=== PATIENT | female | born 1945 | race Caucasian/White ===

== ENCOUNTER 2016-11-06 12:30 | Inpatient (IN) | payer MEDICARE, MEDICAID ==
[~2016-11-06] VITALS: Ht 170.2 cm; Wt 123.3 kg
--- NOTE | ~2016-11-06 | CON ---
PATIENT'S NAME: DESIRAE ALEXANDER [facility] AGE: 70 Y [address] ROOM: G6215 [place], [place] [address] LOCATION: GICU ADMIT DATE: 11/06/2016 Consultation DISCHARGE DATE: 11/20/2016 FAMILY PHYSICIAN: Oksana Tristan APRN ATTENDING PHYSICIAN: Jefferson Dobbs DATE OF CONSULTATION: 11/17/2016 REFERRING PHYSICIAN: LEON CASH PALLIATIVE MEDICINE CONSULTATION LOCATION: ICU Room 6215. REFERRING PROVIDER: Carissa Jean-Baptiste APRN CHIEF COMPLAINT: Palliative Care referral for goals of care conversation. HISTORY OF PRESENT ILLNESS: The patient is a 70-year-old female, who has been having recurrent falls at home. Apparently, her last fall, the patient had fallen and was unable to get up and spent the night on the floor. She was taken to the [facility] where she was found to have creatinine greater than 5.0. Thus, she was transferred to [facility] for higher level of care. Initially, she was admitted to the progressive care unit where she began to have change in level of consciousness and increased O2 demand and required intubation on November 07. The patient was also noted to have hypercalcemia. Workup of this was suspicious for multiple myeloma. A bone marrow biopsy was completed. 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 The patient was started on chemotherapy for this. During her course in the intensive care unit, her mentation did not improve. An MRI was completed which showed diffuse vasogenic edema suggesting secondary to hypertensive encephalopathy. The patient did also require hemodialysis while in the ICU. At the time of my consult, the patient's mentation has yet to improve and given her multiple comorbidities prior to this admission with the addition of plasma cell leukemia, Palliative Care has been brought on board to assist family with goals of care conversation. 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 They report that she has been struggling with some right knee pain which has resulted in multiple falls. The patient also has a history of diabetes mellitus, type 2; hypertension; osteoarthritis; and recurrent falls. PATIENT'S NAME: DESIRAE ALEXANDER [facility] AGE: 70 Y [address] ROOM: [place] [address] LOCATION: [facility] ADMIT DATE: 11/06/2016 Consultation DISCHARGE DATE: 11/20/2016 FAMILY PHYSICIAN: Oksana Tristan APRN ATTENDING PHYSICIAN: Jefferson Dobbs PAST SURGICAL HISTORY: Previous Operations: 1. Tonsillectomy. 2. Cholecystectomy. 3. Appendectomy. 4. Hysterectomy. 5. Surgical repair of a pelvic fracture. PAST MEDICAL HISTORY: 1. Type 2 diabetes mellitus. 2. Hypertension. 3. Morbid obesity. 4. Osteoarthritis. 5. Chronic kidney disease. MEDICATIONS: Please see current MAR. ALLERGIES: TO LATEX. SOCIAL HISTORY: The patient is . She has a history of smoking for approximately 10 years, quit in 1976. No alcohol use. She has a daughter who lives in [place] and a son, who had . FAMILY HISTORY: She had a son who of aplastic anemia at the age of 24. Her mother of breast cancer and her sister also had breast cancer. REVIEW OF SYSTEMS: As per HPI. Otherwise unobtainable as the patient is intubated and unresponsive. PHYSICAL EXAMINATION: VITAL SIGNS: Blood pressure 112/50, heart rate 71, temperature 97.7, respirations 24, and O2 saturations 96% on 40% FiO2 on the ventilator. GENERAL: Reveals unsedated, elderly obese white female, who is lying in intensive care unit, does not appear to be any acute distress. She is unresponsive. HEENT: Normocephalic, atraumatic. Eyes are equal and reactive to light. Sclerae are not icteric. Conjunctivae are pink. Tongue and mucous membranes are moist. Dentition is poor. CARDIOVASCULAR: Heart tones are regular rate and rhythm. I am not able to note a murmur. PATIENT'S NAME: DESIRAE ALEXANDER [facility] AGE: 70 Y [address] ROOM: [address] [address] LOCATION: [facility] ADMIT DATE: 11/06/2016 Consultation DISCHARGE DATE: 11/20/2016 FAMILY PHYSICIAN: Oksana Tristan APRN ATTENDING PHYSICIAN: Jefferson Dobbs RESPIRATORY: Respirations are nonlabored and regular on the ventilator. Lung sounds are slightly coarse bilaterally. GASTROINTESTINAL: Obese, soft, and nondistended. Bowel sounds are present. GENITOURINARY: Young catheter is intact with adequate amount of yellow urine. MUSCULOSKELETAL: No significant joint deformities. Peripheral pulses are 1+ bilaterally. There is no clubbing or cyanosis. She does have slight generalized edema. SKIN: Warm and dry. No unusual lesions or rashes. NEUROLOGIC: The patient shakes her head back and forth, but is spontaneous with this, does not follow any commands. She does withdraw all 4 extremities to pain. She does not open eyes to command. Does spontaneously open eyes, but does not track. IMPRESSION: 1. Respiratory failure. Continues on the ventilator. 2. Altered mental status. We will continue to monitor. 3. Generalized debility. 4. Code status. The patient is a DNR. She does have power of assistant district attorney on the chart and her power of assistant district attorney is her daughter, Leslie. PLAN: I did speak with the patient's daughter, Leslie on the phone, introduced the role of Palliative Care for support and goals of care in the intensive care unit. Provided education to Leslie on the patient's current condition. Her daughter does seem to understand her multiple comorbidities, but remains quite hopeful that she will recover. Answered multiple appropriate questions for the daughter. She does become tearful at times during our conversation, but does report that she has good support from her family at home. Given the amount of time that the patient has been on the ventilator, did discuss with Leslie that we would be needing to have a family meeting in the next couple of days to update her and discussed the plan of care moving forward. At this point, she plans to visit tomorrow, and I will assist with setting up a family meeting with the involved physicians to discuss plan of care. Family denied any spiritual needs for having good support. At this point, we will continue with current plan of care and hold a family meeting in the next day or 2. Total time of visit was 35 minutes, greater than 50% of this time was spent on the phone providing education and counseling. Thank you for allowing me to assist this patient and family. CHARLES REYES NP FOR IGOR PÉREZ MD PATIENT'S NAME: DESIRAE ALEXANDER [facility] AGE: 70 Y [address] ROOM: [place] [address] LOCATION: [facility] ADMIT DATE: 11/06/2016 Consultation DISCHARGE DATE: 11/20/2016 FAMILY PHYSICIAN: Oksana Tristan APRN ATTENDING PHYSICIAN: Jefferson Dobbs/sherinl /[id number] CC: Lewis Vazquez MD d: 11/23/16 1517 t: 11/24/16 1340, CONSULTATION REPORT
--- NOTE | ~2016-11-06 | CON ---
PATIENT'S NAME: DESIRAE ALEXANDER [facility] AGE: 70 Y [address] ROOM: G[address] [place], [place] [address] LOCATION: GICU ADMIT DATE: 11/06/2016 Consultation DISCHARGE DATE: FAMILY PHYSICIAN: Oksana Tristan APRN ATTENDING PHYSICIAN: SOMMER DOBBS DATE OF CONSULTATION: 11/08/2016 REFERRING PHYSICIAN: LEON CASH PULMONARY CRITICAL CARE MEDICINE CONSULT NOTE REQUESTING PHYSICIAN: Dr. Dobbs. REASON FOR CONSULTATION: Evaluation and management of a patient with acute respiratory failure, requiring mechanical ventilation. CHIEF COMPLAINT: Acute respiratory failure with worsening oxygenation. HISTORY OF PRESENT ILLNESS: This is a 70-year-old female with history of morbid obesity, hypertension, diabetes mellitus, and other comorbidities, who was admitted on November 06, 2016, after having recurring falls at home. The initial workup showed that the patient was in acute kidney injury with creatinine greater than 5. She has a history of chronic kidney disease with a creatinine of around 1.3 to 1.4. The patient was admitted for further workup of her acute kidney injury. Blood work also revealed significant hypercalcemia with calcium levels above 13. Yesterday, it was noted that the patient became more obtunded and also started requiring high levels of oxygen. Because of her change in mental status, she was eventually intubated and started on mechanical ventilation in assist control mode with tidal volume of 500, respiratory rate of 16, 100% FiO2, and a PEEP of 5. Earlier this morning, her FiO2 was 30%, but subsequently throughout the day, she started requiring up to 60% FiO2. An ABG done this morning showed pH of 7.47, pCO2 of 31, pO2 of 80 while on 30% FiO2. Because of her worsening oxygenation, I was asked by the hospitalist, Dr. Dobbs, to come and evaluate the patient. At the time of my evaluation, the patient was in clear ventilator dyssynchrony. She was not on any sedatives as the propofol had been stopped earlier today. I tried to increase the PEEP, and her oxygenation improved for a short while until she started fighting the ventilator's breaths. A chest CT was performed earlier today, and I personally reviewed the images that showed bilateral atelectasis with a focal infiltrate in the left lower lobe, which was concerning for aspiration pneumonitis. She also had evidence of a large left neck mass, extending into the thorax. PATIENT'S NAME: DESIRAE ALEXANDER [facility] AGE: 70 Y [address] ROOM: [place] [address] LOCATION: [facility] ADMIT DATE: 11/06/2016 Consultation DISCHARGE DATE: FAMILY PHYSICIAN: Oksana Tristan APRN ATTENDING PHYSICIAN: SOMMER DOBBS Because of her elevated blood pressure readings, the patient was started on nicardipine drip. She also received Lasix today with good urinary output afterwards; however, her last calcium level was still elevated at 13 earlier today. She was started on Zosyn for possible aspiration pneumonia. A V/Q scan done yesterday had low probability for pulmonary embolism. PAST MEDICAL HISTORY: 1. Hypertension. 2. Type 2 diabetes mellitus. 3. Chronic kidney disease. 4. Morbid obesity. 5. Peripheral neuropathy. SOCIAL HISTORY: According to the chart, the patient lives at home by herself and has a remote history of smoking. There is no history of alcohol or illicit drug abuse. FAMILY HISTORY: According to the chart, the patient's mother had heart disease and breast cancer. ALLERGIES: LATEX, BAND-AIDS. CURRENT MEDICATIONS: Reviewed, as per chart. Pertinent medications as per history of present illness. Notably, she is also on: 1. Calcitonin. 2. Pantoprazole. 3. Doxepin. 4. Propranolol. 5. Heparin subcu. 6. Amlodipine. 7. Clonidine. REVIEW OF SYSTEMS: Could not be performed because of the patient's clinical status. She was intubated and obtunded at the time of my evaluation. PHYSICAL EXAMINATION: VITAL SIGNS: Temperature was 98.6, heart rate was 83, respiratory rate was 21, blood pressure was 169/87, oxygen saturation 90% on 60% FiO2, and a PEEP of 5. GENERAL: She was intubated with a sedation analgesia score of 2. HEENT: Atraumatic head. Pupils were equal with brisk reaction to light. PATIENT'S NAME: DESIRAE ALEXANDER [facility] AGE: 70 Y [address] ROOM: [place] [address] LOCATION: GICU ADMIT DATE: 11/06/2016 Consultation DISCHARGE DATE: FAMILY PHYSICIAN: Oksana Tristan APRN ATTENDING PHYSICIAN: SOMMER DOBBS Anicteric sclerae. She had conjunctival pallor. NECK: Supple. No JVD. No lymphadenopathy. She had a hard mass at the base of the left sternocleidomastoid muscle, which was not mobile. CARDIOVASCULAR: Regular rhythm and rate. No murmur, rubs, or gallops. RESPIRATORY: She had decreased breath sounds with few crackles at both lung bases. Otherwise, clear to auscultation. ABDOMEN: Obese, soft, nontender. Bowel sounds were present. EXTREMITIES: She had minimal bilateral lower extremity edema. No cyanosis and no clubbing. LABORATORY DATA: Pertinent data as per history of present illness. Cardiac echo from yesterday showed normal ejection fraction, grade 1 diastolic dysfunction, dilated IVC with poor inspiratory collapse. However, her estimated RVSP was only 22 mmHg, which is within normal limits. She had a trivial tricuspid regurgitation. Renal panel from today reveals sodium of 142, potassium of 3.8, chloride of 110, total serum bicarbonate of 22, glucose of 113, BUN of 45, creatinine of 5.4, albumin of 2.3, phosphorus of 6.2. WBC was 4.7, hemoglobin was 9.2, hematocrit was 28.8, platelets were 124. Blood cultures had no growth to date. ASSESSMENT: 1. Acute respiratory failure. This is worsening, most likely due to atelectasis with possible aspiration pneumonia contributing to the initial injury as well. She will most likely benefit from higher peak end-expiratory pressure as long as there is no ventilator dyssynchrony. 2. Bilateral atelectasis. This is persistent despite intubation and is most likely due to less than ideal peak end-expiratory pressures. 3. Aspiration pneumonia. This is in the context of altered mental status. She is currently on Zosyn. 4. Altered mental status. This seems to be multifactorial due to hypercalcemia, acute kidney injury, hypoxia. 5. Hypercalcemia. This is of unclear etiology but can be secondary to malignancy versus parathyroid disease. 6. Left neck mass. This is with unknown etiology, although it can be malignancy versus parathyroid adenoma. 7. Acute kidney injury on chronic kidney disease with persistently elevated creatinine but still good urinary output. This can be due to hypercalcemia. PLAN: 1. We will continue mechanical ventilation as the patient requires high oxygen levels. I will restart her on propofol drip to prevent ventilator dyssynchrony, and we will increase the peak end-expiratory pressure PATIENT'S NAME: DESIRAE ALEXANDER [facility] AGE: 70 Y [address] ROOM: [id number] [place], [place] [address] LOCATION: [facility] ADMIT DATE: 11/06/2016 Consultation DISCHARGE DATE: FAMILY PHYSICIAN: Oksana Tristan APRN ATTENDING PHYSICIAN: SOMMER DOBBS afterwards as the patient had significant ventilator dyssynchrony with recruitment maneuver while she was more awake. 2. She will need an ENT consult for the left neck mass, and I personally notified the ENT services. 3. We will follow up the nephrology recommendations regarding management of hypercalcemia. 4. We will continue Zosyn and follow up culture results. 5. I will add proBNP to the morning labs. The current assessment and plan was discussed with the nursing staff, Dr. Dobbs, and the ENT services. I spent 45 minutes of critical care time managing acute respiratory failure, which is worsening in a patient with hypercalcemia and possible malignancy. I personally reviewed the data including radiology images and coordinated care among healthcare providers. I would like to thank you, Dr. Dobbs, for giving me the opportunity to participate in this patient's care. MD ЮЛИЯ ROSA/charla /[id number] d: 11/08/[id number] t: 11/09/16 0855, CONSULTATION REPORT
--- NOTE | ~2016-11-06 | NDGEN ---
PATIENT'S NAME: DESIRAE ALEXANDER [facility] AGE: 70 Y [address] ROOM: [address] [address] LOCATION: [facility] ADMIT DATE: 11/06/2016 Neurodiagnostics DISCHARGE DATE: FAMILY PHYSICIAN: Oksana Tristan APRN ATTENDING PHYSICIAN: SOMMER HERNANDEZ PROCEDURE: ELECTROENCEPHALOGRAM DATE OF PROCEDURE: 11/10/2016 DESCRIPTION: The patient had this EEG done on 11/10/2016 at 08:30 a.m. This is a 70-year-old patient who had worsening of her renal function and suddenly had alteration in her sensorium. This EEG was done because the patient is not waking up after being intubated. There is no known history of any seizure activity. This was a standard 20-lead EEG, which was done with photic stimulation. No hyperventilation could be done. At the time of this study, it was known that the patient was on propofol. The background rhythm showed odd rhythmic activity at every 2 to 3 second interval associated with high amplitudes in the background. It was mostly seen in the frontal leads, and possibly consistent with this just being blinking type artifacts as it is only seen in the frontal lead. However in the background, there is rather disruptive rhythmic activity that appears at every 1 to 2 second interval also seen in the left temporal lobe as well. This background rhythm showed complete disorganization throughout the whole study. The general background rhythm appeared to be overall slow at 4 hertz theta rhythm. This disjointed background rhythm may be consistent with epileptiform features though it is completely unclear if this may also be again due to background electrical activity from a ventilator or again due to blink artifact. The patient may be considered for antiseizure medication based upon the background rhythmicity. There was no clear evidence for seizures though the rhythmic activity may be a para phenomena associated with the patient's poor mental status. IMPRESSION: There is significant background activity that appears to be rhythmic mostly in the frontal leads, possibly consistent with an eye blinking artifact. The general background rhythm is slow at 4 hertz theta rhythm. Rhythmic activity suggested in other leads possibly consistent with ictal phenomenon. PATIENT'S NAME: DESIRAE ALEXANDER [facility] AGE: 70 Y [address] ROOM: [place] [address] LOCATION: [facility] ADMIT DATE: 11/06/2016 Neurodiagnostics DISCHARGE DATE: FAMILY PHYSICIAN: Oksana Tristan APRN ATTENDING PHYSICIAN: SOMMER HERNANDEZ MD JRM/charla /[id number] dtt: 12/02/16 0810 , YUNG PATEL dtd: 11/10/16 1751
--- NOTE | ~2016-11-06 | HP ---
PATIENT'S NAME: MASSIEL ALEXANDERRA Judy [facility] AGE: 70 Y [address] ROOM: [address] [place], [place] [address] [facility]ATION: [facility] ADMIT DATE: 11/06/2016 History & Physical DISCHARGE DATE: FAMILY PHYSICIAN: Oksana Tristan APRN ATTENDING PHYSICIAN: SOMMER HERNANDEZ DATE OF SERVICE: CHIEF COMPLAINT: NATHAN and fall. HISTORY OF PRESENT ILLNESS: This is a 70-year-old female with a history of type 2 diabetes and essential hypertension, who is presenting here from [place] for evaluation and workup of NATHAN. The patient reports that she fell at home three days ago and could not get up and had to stay on the floor overnight because she was not able to get herself up. She was subsequently found by a visitor who is also a coordinator on the floor and was subsequently brought to the Emergency Room in [place]. On evaluation, the patient was noted to have injuries to her right knee and contusions to her hip, but skeletal survey was negative for fractures. In any case, the patient was also noted to have significant NATHAN with creatinine greater than 5.0 and baseline is around 1.0. The patient was hydrated during her hospital stay there and given supportive care. However, her kidney function did not improve, although it was reported that she was making okay urine. The patient is subsequently transferred here for escalation of care. The patient during my evaluation today still complaints of right knee pain, however, denies any other complaints other than some aches and pains in her back from the fall. The patient also reports that her fall was mechanical and that her cane that she uses to walk gave on her and that is what led to her fall. She never really lost consciousness and attempted to get herself up several times without success. The patient otherwise denies any headache, dizziness, lightheadedness, chest pain, shortness of breath, cough, nausea, vomiting, diarrhea, or constipation. Denies any fever or chills as well. PAST MEDICAL HISTORY: 1. Type 2 diabetes. 2. Hypertension. 3. Morbid obesity. 4. Peripheral neuropathy. SOCIAL HISTORY: The patient lives at home by herself. Has a remote history of smoking. No alcohol or drug use. [facility] 70 Y [address] ROOM: [id number] [place] [address] LOCATION: [facility]U ADMIT DATE: 11/06/2016 History & Physical DISCHARGE DATE: FAMILY PHYSICIAN: Oksana Tristan APRN ATTENDING PHYSICIAN: SOMMER HERNANDEZ FAMILY HISTORY: The patient's mother had heart disease and of breast cancer. REVIEW OF SYSTEMS: All systems have been reviewed and were all negative except as described in the HPI. PHYSICAL EXAMINATION: VITAL SIGNS: Blood pressure 192/77, pulse 78, respiratory rate 16, and temperature 98.1. GENERAL: The patient is awake, alert, and oriented x3. Lethargic, but pleasant and in no significant distress. HEENT: The patient has dry mucosal membranes. No scleral icterus. Conjunctival pallor noted. SKIN: She has some mild bruising and swelling of her right knee and small amount of bruises on the upper, left side of her back. MUSCULOSKELETAL: She notes significant swelling of her right knee with pain with active and passive range of motion. HEART: S1 and S2. Regular rate and rhythm. CHEST: Clear to auscultation bilaterally. ABDOMEN: Soft, nontender, and nondistended. Positive bowel sounds. NEUROLOGIC: Grossly nonfocal. LABORATORY DATA: Significant laboratories: Creatinine this morning from [place] is 5.9. Baseline around 1.0. CPK is pending. ASSESSMENT AND PLAN: 1. Acute kidney injury. This is related to the patient's fall. No reports on the CPK level yet, but this is perhaps related to rhabdomyolysis or acute tubular necrosis from dehydration of a prerenal cause. We will continue hydrating the patient and monitor kidney function. Dr. Chau from Nephrology is to follow as well. 2. Fall. This appears to be mechanical in nature. She had a skeletal survey at [place] which did not show fractures of her knees or her hip joints. We will ask PT and OT to see and continue with pain management and supportive care. 3. Type 2 diabetes. The patient is on metformin at home setting of acute kidney injury. We will use sliding scale insulin during hospitalization and monitor. 4. Hypertensive urgency. Blood pressure is 192/77. We will use clonidine as needed as well as start her on amlodipine 5 mg daily and monitor closely. The patient is on lisinopril and hydrochlorothiazide at home, but we will hold this in the setting of acute kidney injury. 5. Morbid obesity due to excess calories. The patient will need lifestyle PATIENT'S NAME: DESIRAE ALEXANDER [facility] AGE: 70 Y [address] ROOM: [address] [address] [facility] ADMIT DATE: 11/06/2016 History & Physical DISCHARGE DATE: FAMILY PHYSICIAN: Oksana Tristan APRN ATTENDING PHYSICIAN: SOMMER HERNANDEZ modifications and diet adjustments to address this. 6. Peripheral neuropathy. We will continue patient's home medications including Neurontin. 7. Deep venous thrombosis prophylaxis. We will use subcutaneous heparin. MD ANA MYERS/charla /[id number] D: T: [id number] HISTORY & PHYSICAL
--- NOTE | ~2016-11-06 | CON ---
PATIENT'S NAME: DESIRAE ALEXANDER [facility] AGE: 70 Y [address] ROOM: [place] [address] LOCATION: GICU ADMIT DATE: 11/06/2016 Consultation DISCHARGE DATE: FAMILY PHYSICIAN: Oksana Tristan APRN ATTENDING PHYSICIAN: SOMMER HERNANDEZ DATE OF CONSULTATION: 11/09/2016 REFERRING PHYSICIAN: LEON CASH CHIEF COMPLAINT/REASON FOR CONSULTATION: Left neck mass. HISTORY OF PRESENT ILLNESS: The patient is a 70-year-old female, admitted to [facility] on 11/06/2016, with acute renal insufficiency, status post fall approximately on 11/03/2016. She was taken to the [place] [facility] Room where the patient was noted to be in acute renal insufficiency, was given IV fluids. The patient failed to progress and was subsequently transferred to [facility] on 11/06/2016. The patient has a history of kcu-kyepmhh-xbufhnviv diabetes mellitus. The patient decompensated and required intubation. This patient had an elevated calcium of 10.7, PTH was 4.7. The patient subsequently underwent a CT scan of her thorax without contrast on 11/08/2016 at which time, she was noted to have a large left-sided neck mass with deviation of the trachea to the right. The patient required intubation on 11/08/2016. ENT consultation was obtained for left-sided neck mass. Additional past history is not obtainable secondary to intubation. PAST MEDICAL HISTORY: Please see admission H and P. SOCIAL HISTORY: Please see admission H and P. FAMILY HISTORY: Please see admission H and P. REVIEW OF SYSTEMS: Please see admission H and P. PHYSICAL EXAMINATION: GENERAL: She is obese 70-year-old female, currently intubated and nonresponsive. HEENT: Eyes; EOMI. Pupils equal, round, and reactive. Nose; nasal mucosa is not edematous or erythematous. No rhinorrhea. Oropharynx and oral cavity; the patient is intubated with an ET as well as OG tube in place. Dentition is in PATIENT'S NAME: DESIRAE ALEXANDER [facility] AGE: 70 Y [address] ROOM: [place] [address] LOCATION: GI ADMIT DATE: 11/06/2016 Consultation DISCHARGE DATE: FAMILY PHYSICIAN: Oksana Tristan APRN ATTENDING PHYSICIAN: SOMMER HERNANDEZ good repair. NECK: The patient has a left-sided palpable thyroid mass with deviation of trachea to the right. There is no additional cervical lymphadenopathy. IMAGING STUDIES: A CT scan reviewed which reveals a large left thyroid mass with deviation of the trachea to the right. No additional cervical lymphadenopathy is appreciated. ASSESSMENT: 1. Left thyroid mass with tracheal deviation (5 x 6 cm). 2. Acute renal insufficiency. RECOMMENDATIONS: Pending further evaluation, the patient may require a percutaneous needle biopsy of a left-sided thyroid mass to rule out significant pathology (i.e., medullary CA). Consideration for surgical intervention when medically stable. ALIA PEREZ MD TVDavid/modl /[id number] d: 11/09/16 1316 t: 11/16/16 0714, CONSULTATION REPORT
--- NOTE | ~2016-11-06 | OR ---
PATIENT'S NAME: DESIRAE ALEXANDER [facility] AGE: 70 Y [address] ROOM: [place] [address] LOCATION: [facility] ADMIT DATE: 11/06/2016 OR/Procedure Report DISCHARGE DATE: FAMILY PHYSICIAN: Oksana Tristan APRN ATTENDING PHYSICIAN: SOMMER HERNANDEZ SURGEON: Kaylah Barnett MD DIGITAL PUBLISHING SPECIALIST: DATE OF PROCEDURE: 11/12/2016 PROCEDURE PERFORMED: Bone marrow biopsy and aspirate. DESCRIPTION OF PROCEDURE: The patient was placed on her right side, and her left posterior iliac crest was prepped and draped in a sterile fashion. 1% lidocaine was used for anesthetic. A bone marrow needle was placed into the bone x2 for aspirate, but a dry tap was obtained both times. Then, a different site on the bone was obtained, and a separate core was obtained for flow cytometry, cytogenetics, and FISH. The specimen was taken down to the lab for histologic evaluation and will be sent to reference lab for further evaluation. A Band-Aid was applied. There were no complications. KAYLAH BARNETT MD CML/modl /[id number] d: 11/12/16 1234 t: 12/07/16 1549, OPERATIVE SUMMARY
--- NOTE | ~2016-11-06 | CON ---
PATIENT'S NAME: MALLORY ALEXANDER [facility] AGE: 70 Y [address] ROOM: [address] [place], [place] [address] LOCATION: GICU ADMIT DATE: 11/06/2016 Consultation DISCHARGE DATE: FAMILY PHYSICIAN: Oksana Tristan APRN ATTENDING PHYSICIAN: SOMMER HERNANDEZ DATE OF CONSULTATION: 11/09/2016 REFERRING PHYSICIAN: LEON CASH Consult to Dr. Franco. HISTORY OF PRESENT ILLNESS: Mallory Alexander is a 70-year-old woman with IgG lambda multiple myeloma. The history of the present illness was obtained from Mrs. Alexander's daughter who was a good historian; Dr. Franco; review of the records forwarded by our colleagues in [facility]; and review of the extensive current [facility] chart. Apparently, Mrs. Alexander was in her normal state of health until 2-3 weeks prior to her hospitalization at [facility] on 11/06/2016. She lived in the [facility] in [place]. She had a private apartment. 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 She has used a walker since 2008. She has been unstable since 2008 because of her right knee. She has been disabled by osteoarthritis in the right knee, which has been aggravated by her class III obesity. 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 The patient can do some cooking and light work. She had no formal or informal exercise program and did not participate in any physical therapy or occupational therapy program. Two to three weeks prior to admission, the patient's right knee gave way and she fell out of her car. She was transported to the emergency room at the [facility]. She was evaluated and discharged. The patient continued to complain of a persistent, severe but chronic headache. On or about 11/01/2016, Mrs. Alexander's daughter called Mrs. Alexander. Mrs. Alexander did not answer. [facility]. Her daughter called the police department who presented to the patient's house and did not find her. The patient had already been found by the [facility] bushel girl who had called the rescue squad. The patient was transferred to the [place] Emergency Room where she was found to be in acute renal failure. Arrangements were made for transfer to PATIENT'S NAME: MALLORY ALEXANDER [facility] AGE: 70 Y [address] ROOM: [address] [place], [place] [address] LOCATION: GICU ADMIT DATE: 11/06/2016 Consultation DISCHARGE DATE: FAMILY PHYSICIAN: Oksana Tristan APRN ATTENDING PHYSICIAN: SOMMER HERNANDEZ the [facility]. It is important to note that on 05/29/2016, a general chemical profile revealed the EGFR was 36 mL/m and the globulin was elevated at 5.6 g/dL. The creatinine was 1.43 mg/dL. The albumin was 3 g/dL. Otherwise, the CMS was unremarkable. An earlier CBC is not available but Mrs. Alexander's daughter is unaware of any history of anemia. The patient was hospitalized at [facility] on 11/06/2016. The urinalysis revealed 30 mg/dL of protein. There were many bacteria. The white count was 4300 with 51 segs, 4 bands, 38 lymphs, 3 monos, 4 EOS as well as 2 nucleated red blood cells. The hemoglobin was 9.3 g/dL, the MCV 92, and the platelets 167,000. The CMS revealed the globulin was 7.5 g/dL, the calcium 13.2 mg/dL, the EGFR 7 mL/m, the BUN 52 mg/dL, and the creatinine 5.9 mg/dL. The liver function tests and other electrolytes were unremarkable. The albumin was decreased at 2.6 g/dL. The lactate was 1.2 mEq/L. The intact PTH was 4.7 pg/mL, which is low. The ferritin was elevated to 152.9 ng/mL, the iron was 45 ug/dL, the TIBC 26 ug/dL, and the percentage saturation 17%. The cardiac enzymes were unremarkable. The proBNP on 11/09/2016 was 7300 pg/mL. Uric acid upon admission was less than 0.2 mg/dL. The LDH was 168 IU/L. The glycosylated hemoglobin was slightly elevated at 5.8%. An IgG level is elevated at 3440 mg/dL, probably IgA level is low at 8 mg/dL, and the IgM level is low at 6 mg/dL. The beta-2 microglobulin is 14.1 mg/L. The lambda free light chains were 6 and 46 mg/dL, the kappa free light chains 1.34 mg/dL, and the kappa lambda ratio less than 0.01. The hepatitis B screen testings are pending. The hepatitis C virus testing is pending. 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 The serum protein electrophoresis revealed an albumin of 2.8 g/dL and a monoclonal protein of 1 g/dL. The urine immunofixation electrophoresis revealed monoclonal IgG lambda and monoclonal lambda light chains with 4082 mg of protein spilled in 24 hours. The bronchoalveolar lavage specimen revealed greater than 100,000 Staphylococcus aureus. The patient was placed on doxycycline for this organism. The plain film of the chest was unremarkable. 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 The kidneys were both 13 cm without hydronephrosis. The ventilation perfusion scan revealed a low probability of pulmonary emboli on 11/07/2016. A CT scan of the brain without contrast revealed no acute intracranial abnormality and severe pansinusitis. The CT scan of the thorax revealed a large left-sided substernal thyroid measuring 6 cm, displacing the trachea to the right. Bilateral central and posterior lobe consolidation with air bronchograms compatible with atelectasis was present. An ultrasound-guided biopsy of the left thyroid mass was performed on PATIENT'S NAME: MALLORY ALEXANDER [facility] AGE: 70 Y [address] ROOM: [place] [address] LOCATION: [facility] ADMIT DATE: 11/06/2016 Consultation DISCHARGE DATE: FAMILY PHYSICIAN: Oksana Tristan APRN ATTENDING PHYSICIAN: SOMMER HERNANDEZ 11/12/2016 and revealed thyroid tissue compatible with a benign follicular nodule. On 11/12/2016, a bone marrow aspiration & biopsy with flow cytometry, conventional cytogenetics and cytogenetics by FISH was performed. The marrow revealed plentiful plasma cells (voice report, Dr. Everton Edwards). The flow cytometry and formal report is pending. Mrs. Alexander has no history of anemia and proliferative disorder. ACTIVE MEDICAL PROBLEMS, CHRONIC AND DIAGNOSED: 1. Type 2 diabetes mellitus noted in 2008 when the patient presented for evaluation of fatigue. This has not been labile. It may have been associated with peripheral neuropathy. The patient has been checking her sugars at home. 2. Essential arterial hypertension noted in 2006. This has not been labile or associated with end-organ damage. This was picked up when she presented for evaluation of fatigue. 3. Obesity. The BMI is 44.6 kg/M2 on 11/06/2016. 4. Osteoarthritis involving the hips, right knee, back and associated with sciatica. 5. Presumed nonalcoholic fatty liver disease. 6. Essential tremor, manifested for 5-6 years. The patient had a grandmother who had this. 7. Tobacco use. The patient smoked 14 years but has abstained since 1976. 8. Benign follicular nodule noted on biopsy of the thyroid gland on 11/12/2016. 9. Acute kidney disease on top of chronic kidney disease. 10. "Severe pansinusitis" noted on CAT scan of the brain in 2016. 11. Protein calorie malnutrition. 12. Grade 1 diastolic dysfunction. 13. Hypovitaminosis D with a vitamin D level 9 ng/mL. 14. ?Bipolar disorder - ?generalized anxiety. 15. ?Irritable bowel syndrome - constipation, predominant. 16. ?Muscle tension headaches for 12 years. 17. Hyperlipidemia noted in 2008. 18. Allergic rhinitis as a child. ACUTE MEDICAL ILLNESSES (RESOLVED), PAST SURGERIES, INJURIES: 1. 1956 - tonsillectomy. 2. 1982 - tubal ligation. 3. : G2, P2, AB0. 4. 2005 - laparoscopic cholecystectomy. 5. 2009 - total abdominal hysterectomy for fibroid tumor. PATIENT'S NAME: MALLORY ALEXANDER [facility] AGE: 70 Y [address] ROOM: [id number] [place], [place] [address] LOCATION: [facility] ADMIT DATE: 11/06/2016 Consultation DISCHARGE DATE: FAMILY PHYSICIAN: Oksana Tristan APRN ATTENDING PHYSICIAN: SOMMER HERNANDEZ MEDICATIONS UPON HOSPITALIZATION: 1. Atorvastatin 10 mg p.o. q.p.m. 2. Bupropion 450 mg p.o. q.24h. 3. Diazepam 2 mg p.o. daily p.r.n. anxiety. 4. Doxepin 25 mg p.o. at bedtime. 5. Gabapentin 300 mg p.o. at bedtime. 6. Lisinopril/HCTZ 1 tab p.o. daily. 7. Loratadine 10 mg p.o. q.24h. 8. Metformin 500 mg p.o. b.i.d. 9. Naproxen 500 mg p.o. q.24h. 10. Propranolol 40 mg p.o. t.i.d. 11. Tramadol 50 mg p.o. b.i.d. ADVERSE REACTIONS TO MEDICATIONS, TRANSFUSIONS, ALLERGIES: 1. Band-Aids led to rash. 2. Therapeutic-M led to rash. 3. The patient's daughter is unaware of any blood transfusions that the patient had prior to her current hospitalization at [facility]. Remarkably, the patient has had no transfusions here. TOBACCO: The patient has abstained since 1976 and smoked an unknown amount for 10 years prior to that. ALCOHOL: None. CAFFEINE: Two to three cups of coffee per day. IMMUNIZATIONS: Positive flu. Positive Pneumovax. Positive tetanus in 2002. Positive varicella zoster virus. FAMILY HISTORY: 1. The patient had a son who of aplastic anemia at age 24. 2. The patient's mother had breast cancer at age 65. 3. The patient's sister developed breast cancer in her 80s. SOCIAL HISTORY: The patient was born in [place], [place] and graduated at the [employer]. The patient was in 2004 and retired in 2004 due to disability. She has a daughter in [place] and a son who . The patient is a member of the [employer]. As noted, she currently lived in [place] in a low-income apartment. PATIENT'S NAME: MALLORY ALEXANDER [facility] AGE: 70 Y [address] ROOM: [place] [address] LOCATION: [facility] ADMIT DATE: 11/06/2016 Consultation DISCHARGE DATE: FAMILY PHYSICIAN: Oksana Tristan APRN ATTENDING PHYSICIAN: SOMMER HERNANDEZ PHYSICAL EXAMINATION: VITAL SIGNS: Upon admission, pulse 72, blood pressure 175/80, respiratory rate 18, temperature 97.8, height 67 inches, weight 129.3 kg (285 pounds). BMI 44.6 kg/M2. GENERAL: Well-developed, obese, 63-year-old female who is intubated and also has an orogastric tube in place. HEENT: Unremarkable. LYMPH NODES: None palpable. NECK: There is a 10 cm vertical left neck mass. SKIN: Unremarkable. CHEST: Clear anteriorly. BREASTS: Pendulous. No obvious masses. CV: Decreased S1 and S2. No murmurs, bruits, or adventitious sounds. ABDOMEN: Healed horizontal scar at the pelvic brim. No masses, tenderness, or organomegaly. GENITAL AND RECTAL: Young catheter in place. EXTREMITIES: Compression devices present on the lower extremities. NEURO: The patient is unarousable, on the ventilator. IMPRESSION: 1. At least Revised-International Staging System stage II IgG lambda multiple myeloma complicated with hypercalcemia and acute renal failure, requiring hemodialysis and leading to plasmapheresis. It is rare to present with plasma cell leukemia, but she has. 2. The neck mass may be entirely benign. One biopsy compatible with benign follicular neoplasm does not rule out the possibility of neoplastic behavior. However, it is quite likely her immunoproliferative disorder would be responsible for most of her future morbidity and possible mortality and definitive surgical approach to the left neck mass will likely not be necessary. 3. Uncharacterized neurologic disorder associated with coma. It is not clear to what extent her immunoproliferative disorder is contributing. 4. Although, we do not have the cytogenetics by FISH to completely categorize what her risk category is, we know she has an aggressive myeloma and immediate treatment is warranted. RECOMMEND DIAGNOSTIC: Await cytogenetics by FISH. TREATMENT: 1. Initiate cyclophosphamide 300 mg/M2 p.o., days 1, 8, 15, and 22; bortezomib 1.5 mg/M2 subcutaneous, days 1, 8, 15, and 22; as well as dexamethasone 40 mg p.o. days 1, 8, 15, and 22 every 4 weeks. 2. Initiate valacyclovir, antiviral prophylaxis. 3. Pamidronate for hypercalcemia and bone disease if possible. PATIENT'S NAME: MALLORY ALEXANDER [facility] AGE: 70 Y [address] ROOM: [id number] [place], [place] [address] LOCATION: [facility] ADMIT DATE: 11/06/2016 Consultation DISCHARGE DATE: FAMILY PHYSICIAN: Oksana Tristan APRN ATTENDING PHYSICIAN: SOMMER HERNANDEZ 4. Continue hemodialysis and consider continued plasmapheresis by the patient's pack changer. If anybody is a candidate for plasmapheresis to reduce the light chain load to try to prevent long-term renal insufficiency this patient is. PATIENT EDUCATION: 1. Made the point to the patient's daughter this is a treatable disease. 2. Discussed the fact the treatment is with systemic neoplastic therapy. There is no role for radiation or surgery at this point. MD REI GONZALEZ/modl /[id number] CC: MD Oksana Patiño APRN Jason R Mallin, MD Abhisekh Sinha Ray, MD Barkot Gebremichael, MD d: 11/14/16 2341 t: 11/17/16 1435, CONSULTATION REPORT
--- NOTE | ~2016-11-06 | NDGEN ---
PATIENT'S NAME: DESIRAE ALEXANDER [facility] AGE: 70 Y [address] ROOM: [place] [address] LOCATION: [facility] ADMIT DATE: 11/06/2016 Neurodiagnostics DISCHARGE DATE: FAMILY PHYSICIAN: Oksana Tristan APRN ATTENDING PHYSICIAN: SOMMER HERNANDEZ PROCEDURE: ELECTROENCEPHALOGRAM DATE OF PROCEDURE: 11/10/2016 TIME: The patient had this EEG done on 11/10/2016, as a followup EEG. The time of this EEG is 08:30 a.m. DESCRIPTION: Ms. Alexander is a 70-year-old female patient who came in with acute onset of renal failure, had normal mental status, but suddenly developed rapid change in mental status one day. She had to be intubated. She is not waking up, but can respond to her environment, but remains very sleepy. This EEG was done to rule out any evidence of any background seizure activity. The general background rhythm was very similar to the prior EEG. It showed a burst pattern of about 3 to 4 seconds of high amplitude rhythmic activity followed by lower amplitude background rhythm of approximately 6 Hz. The general background rhythm in between burst pattern was in the theta range consistent with a slow background rhythm. This type of burst pattern symmetric rhythm followed by a diminished rhythmic pattern followed by many seconds of rhythmic activity does not appear to be seizures, but may be a burst suppression pattern from whole global injury. The pattern can be seen in anoxic persons who are in toxic metabolic states, infections such as encephalitis, electrolyte abnormalities, and organ failure. This unlikely represents some type of ictal of postictal pattern. IMPRESSION: An abnormal EEG due to background rhythm being slow intermixed with a burst rhythmic activity followed by more of a suppressed pattern. This sometimes can be seen as a postictal phenomena, but usually is more likely to be due to the whole brain injury from anoxia, infection, metabolic derangement. YUNG PATEL MD PATIENT'S NAME: DESIRAE ALEXANDER [facility] AGE: 70 Y [address] ROOM: [place] [address] LOCATION: [facility] ADMIT DATE: 11/06/2016 Neurodiagnostics DISCHARGE DATE: FAMILY PHYSICIAN: Oksana Tristan APRN ATTENDING PHYSICIAN: SOMMER HERNANDEZ/charla /[id number] dtt: 12/02/16 0820 , YUNG PATEL dtd: 11/16/16 1901
--- NOTE | ~2016-11-06 | ECHO ---
Transthoracic Echocardiography Report (TTE) Demographics Patient Name DESIRAE ALEXANDER Date of Study 11/07/2016 Patient Number [id number] Visit Number [id number] Date of 1945 Room Number G6215 Gender Female Number Age 70 year(s) Referring [facility] Coining Press Operator Basia Carrington RDCS, Physician Jefferson RVT Physician Interpreting Sia Adame MD Acrobatic Dancer Physician Supervising Ordering [facility] Jefferson FOOTE/MLP Physician Nurse Stress Chemical Waste Management Technician Conclusions Contractility Score Summary Normal Left Ventricular contractility was noted. Summary Technically difficult exam. The estimated left ventricular ejection fraction is 55-60%. The left ventricle is normal in size . Diastolic assessment reveals Grade I diastolic dysfunction. Dilated IVC with poor inspiratory collapse consistent with elevated RA pressure. The aortic root appears mildly dilated. The maximum diameter measures 4.1 cm. Procedure Type of Study TTE procedure:2D Echocardiogram. Procedure Date Date: 11/07/2016 Start: 12:36 PM Study Location: Inpatient Portable Technical Quality: Adequate visualization Indications:Hypertension. Additional Indications:Ventricular function Appropriate Use Criteria: 2 Patient Status: STAT HR: 69 bpm BP: 173/86 mmHg M-Mode/2D Measurements LV Diastolic Dimension: 4.04 cm LV Systolic Dimension: 2.26 cm LV Septum Diastolic: 0.86 cm LV PW Diastolic: 0.96 cm AO Root Dimension: 4.1 cm Cardiac Output: 6.79 l/min AV Cusp Separation: 2.4 cm RV Diastolic Dimension: 2.65 cm LA volume: 51 ml LVOT: 2.2 cm RV Base: 3.39 cm LVOT VTI: 25.9 cm RV Mid: 3.31 cm LV Stroke volume: 98.4 ml Doppler Measurements AV Peak Velocity: 1.23 m/s MV Peak E-Wave: 0.69 m/s AV Peak Gradient: 6.05 mmHg MV Peak A-Wave: 1.1 m/s AV Mean Gradient: 3 mmHg MV E/A Ratio: 0.63 LVOT Peak Velocity: 0.96 m/s MV P1/2t: 61 msec TR Gradient:6.97 mmHg PV Peak Velocity: 1.03 m/s Estimated RAP:15 mmHg PV Peak Gradient: 4.24 mmHg Estimated RVSP: 22 mmHg Estimated PASP: 21.97 mmHg E' Septal Velocity: 0.04 m/s A' Septal Velocity: 0.1 m/s E' Lateral Velocity: 0.05 m/s A' Lateral Velocity: 0.12 m/s Findings Left Ventricle The left ventricle is normal in size . Diastolic assessment reveals Grade I diastolic dysfunction. Right Ventricle Normal right ventricle structure and function. Left Atrium Normal left atrial size. Right Atrium Normal right atrial size. Dilated IVC with poor inspiratory collapse consistent with elevated RA pressure. Mitral Valve Normal mitral valve structure and function. Aortic Valve Normal aortic valve structure and function. Tricuspid Valve Trivial tricuspid regurgitation by color Doppler. Pulmonic Valve Normal pulmonic valve structure and function. Pericardial Effusion No evidence of pericardial effusion. Miscellaneous The aortic root appears mildly dilated. The maximum diameter measures 4.1 cm. Pleural Effusion No evidence of pleural effusion. Contractility Score LV regional wall motion:(0-Non visualized 1-Normal 2-Hypokinesis 3-Akinesis 4-Dyskinesis 5-Aneurysm) Signature dtt: Deep Stovall (cardio) dtd: 11/07/16 1236 Physician Self Edit
--- NOTE | ~2016-11-06 | DS ---
PATIENT'S NAME: DESIRAE ALEXANDER [facility] AGE: 70 Y [address] ROOM: [address] [place], [place] [address] LOCATION: GICU ADMIT DATE: 11/06/2016 Discharge Summary DISCHARGE DATE: 11/20/2016 FAMILY PHYSICIAN: Oksana Tristan APRN ATTENDING PHYSICIAN: Jefferson Dobbs ADMITTING DIAGNOSIS: Acute kidney injury. DISCHARGE DIAGNOSES: Plasma cell leukemia, acute kidney injury, acute encephalopathy, hypercalcemia, acute hypoxic respiratory failure, pancytopenia, health care-associated pneumonia, vasogenic edema of the brain, most likely secondary to hypertensive encephalopathy, possible seizure. PROCEDURES: Intubation with mechanical ventilation, dialysis, Vas-Cath placement, lumbar puncture. CONSULTATION: Palliative Care, Oncology, Nephrology, and Neurology. HISTORY OF PRESENT ILLNESS: This is a 70-year-old female with history of type 2 diabetes, essential hypertension who presented from [place] for evaluating and workup of NATHAN. The patient initially reports that she fell at home 3 days ago and could not get up and had to stay on the floor overnight because she was not able to get up herself. She was subsequently found by a visitor who was also coordinator on the floor and was brought to the emergency department in [place]. At the [facility], she was noted to have injuries on her right knees and contusion on her hip. The patient was noted to have a significant acute kidney injury with creatinine greater than 5 from a baseline of 1. The patient was hydrating during her hospital stay and given supportive care. However, kidney function did not improve, although it is reported that she was making some urine output. The patient was subsequently transferred here for further care. HOSPITAL COURSE: The patient was admitted to our hospital. Nephrology consult was made. The patient has hemodialysis line placement. Also, the patient was noted to have hypercalcemia workup. Off the hypercalcemia workup, the patient was suspected to have multiple myeloma and had bone marrow biopsy. Oncology was consulted. Bone marrow biopsy results shows plasma cell leukemia. The patient received Cybor-D x1 for plasma cell leukemia. The patient also was noted to have poor mentation and subsequently was found to be unresponsive, which required intubation and mechanical ventilation. MRI of the brain shows diffuse vasogenic edema suggesting secondary to hypertensive encephalopathy. During her stay, the patient was also noted to have elevated blood pressure. For hypercalcemia, the patient was seen by die trimmer and was placed on dialysis and received one dose of bisphosphonate. Calcium during stay was somewhat improved. The patient continued to have session of PATIENT'S NAME: DESIRAE ALEXANDER [facility] AGE: 70 Y [address] ROOM: [address] [place], [place] [address] LOCATION: [facility] ADMIT DATE: 11/06/2016 Discharge Summary DISCHARGE DATE: 11/20/2016 FAMILY PHYSICIAN: Oksana Tristan APRN ATTENDING PHYSICIAN: Jefferson Dobbs dialysis without improvement of creatinine. The patient's mentation continued to deteriorate. The patient had Urology consult for possible seizure-like activity. The LP was done, which was unremarkable. The patient continued to have poor mentation. GCS was 6 with grimacing and withdrawing to painful stimuli. Multiple discussions were made with family about continuing her care. Due to the aggressive nature of the disease, plasma cell leukemia, and the patient's continuing worsening of symptoms, family member after long section of discussion with Dr. Plaza from Oncology and [place], Dr. Zazueta, family requested the patient to withdraw aggressive care and keep the patient in comfort care. The patient's code status was changed to DNR with comfort care today this afternoon. The patient was extubated around 1543. Palliative care was involved. The patient at 1917 hours. Cause of date: Cardiopulmonary arrest secondary to comatose and multiple organ failure. CONDITION: The patient . DISPOSITION: Home. DISCHARGE MEDICATION: There are no discharge medication. FOLLOWUP: No followup, patient diseased. Greater than 30 minutes were spent on discharge planning including meeting with family member this afternoon about the patient's status. The patient has . Family member present when the patient . MD MAR LINARES/charla /[id number] d: 11/21/16 0656 t: 11/21/16 1749, DISCHARGE SUMMARY
--- NOTE | ~2016-11-06 | CON ---
PATIENT'S NAME: MALLORY ALEXANDER [facility] AGE: 70 Y [address] ROOM: [address] [place], [place] [address] LOCATION: GICU ADMIT DATE: 11/06/2016 Consultation DISCHARGE DATE: FAMILY PHYSICIAN: Oksana Tristan APRN ATTENDING PHYSICIAN: SOMMER DOBBS DATE OF CONSULTATION: 11/08/2016 REFERRING PHYSICIAN: LEON CASH The patient was seen on 11/08/2016 at 1:00 p.m. at the request of the hospitalist, Dr. Dobbs. HISTORY OF PRESENT ILLNESS: At the time of my seeing the patient, she was in the ICU, and was intubated after an emergency call on the floor when the patient suddenly became unresponsive. This 70-year-old female has multiple medical issues including stage 3 chronic kidney disease, hypertension. Her baseline creatinine was known to be in the range of 1.3 to 1.4; however, she presented with an acute renal injury with creatinine as high as 5.9. Her creatinine level was in the 4s currently when I am seeing her. Her BUN is particularly high, holding in the range of 40. The patient never had any known seizure activity and though she was not witnessed to have a seizure, it was a possibility that she may have had a seizure to explain her acute mental status change. The patient was transferred from the floor, hereafter, she was admitted for workup of as to why she has progressive acute kidney failure as well as worsening of a chronic tremor. Upon her admission to this hospital, she was alert and oriented. Able to give a full history. She was noted to have an increased tremor in her upper extremities. Her glucose was slightly elevated and discussions with her concerning her glucose management took place. She seemed to have been able to understand all questioning. She did not appear to be short of breath or complaining about pain and she did not receive any pain medications. The patient does live by herself in an apartment in [place] and as far as most of what we know, she is quite homebound, has a daughter who lives close by and she is involved in her care closely. When I saw the patient on my exam, she was in the ICU, intubated with an ET tube in place. On a sternal rub, the patient was wincing and withdrawing her upper extremities to pain but was not opening her eyes and had been off the propofol anesthetic sedation since the oncology nurse navigator of at least 7 hours. She appeared to be moving all of her limbs and able to at least be aware of her sensorium to withdrawal to pain. However, again did not open her eyes or follow commands. PAST MEDICAL HISTORY: She has an essential tremor, morbid obesity, chronic low grade kidney disease, however, with the presentation, she presented with acute on chronic renal failure. She has no history of needing renal dialysis. She also has a PATIENT'S NAME: MALLORY ALEXANDER [facility] AGE: 70 Y [address] ROOM: [place] [address] LOCATION: [facility] ADMIT DATE: 11/06/2016 Consultation DISCHARGE DATE: FAMILY PHYSICIAN: Oksana Tristan APRN ATTENDING PHYSICIAN: SOMMER DOBBS history of major depression, chronic sciatica. PAST SURGICAL HISTORY: Included a cholecystectomy in 2005, tubal ligation, hysterectomy in 2009 secondary to uterine fibroid. FAMILY HISTORY: Consistent with coronary artery disease in her father and in an aunt. There is some diabetes that is both in her aunt and her grandmother. SOCIAL HISTORY: The patient does live alone. However, she has a daughter who comes to her apartment. The patient lives in [place]. The daughter lives in [place]. She is . There is no history here of alcohol abuse. She is an ex-smoker. CURRENT MEDICATIONS: The patient is on: 1. Zosyn 3.375 mg IV twice a day. 2. Pantoprazole 40 mg IV daily. 3. Doxepin 25 mg p.o. at bedtime. 4. Propranolol 40 mg 3 times a day. 5. Heparin subcutaneously 5000 units 3 times a day. 6. Clonidine 0.1 mg q.6 hours p.r.n. hypertension as well as regular insulin with each meal and at bedtime subcutaneously. REVIEW OF SYSTEMS: Ms. Alexander is a 70-year-old female patient who presents with acute on chronic renal insufficiency. Her mental status was good here in the hospital on admission; however, she had acute mental status change of alteration in her sensorium, need to be intubated. The possibility of whether she had a neurologic insult such as a stroke or a new seizure was questioned. Diabetes, the patient has long-standing diabetes. She is on chronic insulin therapy. She does not know her fingerstick glucose management very well. She has obesity. Psychiatric history, history of depression. Renal history as mentioned, renal insufficiency but acute on chronic renal failure. No history of renal dialysis. Rest of a 10-point review of systems is within normal limits. PHYSICAL EXAMINATION: GENERAL: The patient is an obese female, intubated; however, she reacts to environmental stimuli such as a sternal rub. She grimaces in pain at attempts to bring her arms up towards the ET tube or to guard, due to pain. Otherwise, she remains what appears to be quite sedated, does not open her eyes. She does not follow commands. She squeezes my hand. She otherwise remains still. There is no noticed jerking of the limbs or noticeable tremor or seizure PATIENT'S NAME: MALLORY ALEXANDER [facility] AGE: 70 Y [address] ROOM: [place] [address] LOCATION: [facility] ADMIT DATE: 11/06/2016 Consultation DISCHARGE DATE: FAMILY PHYSICIAN: Oksana Tristan APRN ATTENDING PHYSICIAN: SOMMER DOBBS activity was seen. The patient is not on any sedative medications. NEUROLOGIC: Cranial nerves, grossly intact. Motor exam, normal tone of all 4 limbs. The patient does seem to move all 4 limbs in reaction to pain. Sensory exam and coordination cannot be tested well. LABORATORY DATA: Laboratory results do reveal an elevated calcium level, as high as 13.2 upon admission though it has recovered to 10.7 upon hydration alone. Creatinine is noticed to be at 5.9 with a BUN in the range of 40s to 50s. Liver functions including AST, ALT, and alkaline phosphatase are otherwise normal. She had a normal iron study, normal ferritin level, and CPK levels were all within normal limits, inconsistent with any recent seizure activity. A new PTH level was taken and it is low at 4.7. IMPRESSION: The etiology for the patient's mental status being poor at this time is really unknown. The acute change in mental status could have been associated with a possibility of a seizure though without any etiology other than a slightly high calcium which has improved with rehydration, seems to be a less likely etiology here. The low PTH level does not suggest a primary reason such as a hyperparathyroid adenoma and in fact the low PTH would suggest some reaction to some intrinsic high calcium in her system. There is no known tumor mass. There is no known bony mass that we are aware of. She does have some fullness in her left neck in the region of her thyroid which may be worked up but this may be unrelated. CPK levels being low do not suggest any recent generalized seizure. I have ordered an EEG nonetheless to rule out any possibility of odd epileptiform activity or any background seizure activity due to the patient's poor mental status currently. Nonetheless, the patient does react to revive mental stimuli such as pain and may just be quite sedated at this time. A CAT scan of the brain does not show any evidence of an intracranial mass or developing a stroke, thus the mental status change does not seem to be related to an intracranial process. Certainly, a sudden onset of mental status change would not be consistent with a brain infection as she was quite normal, did not have any meningismus signs, and does not have any active fever. We need to follow along with the Hospitalist Service on the Ms. Mallory Alexander's neurologic status. MD MEREDITH RODRIGUES/charla PATIENT'S NAME: MALLORY ALEXANDER [facility] AGE: 70 Y [address] ROOM: [place] [address] LOCATION: [facility] ADMIT DATE: 11/06/2016 Consultation DISCHARGE DATE: FAMILY PHYSICIAN: Oksana Tristan APRN ATTENDING PHYSICIAN: SOMMER DOBBS /[id number] d: 11/09/16 1715 t: 11/12/16 1324, CONSULTATION REPORT
--- NOTE | ~2016-11-06 | CON ---
PATIENT'S NAME: DESIRAE ALEXANDER [facility] AGE: 70 Y [address] ROOM: [address] [place] [address] LOCATION: GPCU ADMIT DATE: 11/06/2016 Consultation DISCHARGE DATE: FAMILY PHYSICIAN: Oksana Tristan APRN ATTENDING PHYSICIAN: SOMMER DOBBS DATE OF CONSULTATION: 11/06/2016 REFERRING PHYSICIAN: Sommer Dobbs MD REASON FOR CONSULTATION: NATHAN. HISTORY OF PRESENT ILLNESS: A 70-year-old female with a history of hypertension, diabetes, CKD stage 3 with baseline creatinine around 1.3-1.4, presented to [facility] after multiple episodes of fall more recently today. A CT head and x-rays was negative for any body injury; however, on routine serum chemistry, the patient was noted to have a creatinine of 5.9, from a prior baseline of 1.4 in July 2016. She has never seen a editor in the past and subsequently the patient got transferred to our hospital for further evaluation and management of her NATHAN. Nephrology consultation has been called for above-mentioned reason. During my evaluation, the patient is alert, oriented without any significant neurological involvement except chronic tremor, which is thought to be essential in the past. Routine labs here shows normocytic normochromic anemia with hemoglobin of 9.3, creatinine of 5.9, and BUN of 53, hypercalcemia of 13.2, altered A/G ratio of 0.3, total protein of 10.1, and albumin of 2.6. Urinalysis specific gravity was 1.015, pH of 7 with 1+ protein, 1+ blood, and many bacteria, but otherwise negative. The patient denied any significant chest pain, shortness of breath, or orthopnea. She has no urinary symptoms at this point as well. She has significant history of degenerative joint disease or arthritis on multiple joints in the body and her mobility is severely restricted. Since her demised about 8-10 years back, she is living alone in an apartment at [place]. Although, she does her activity of daily living independently, but she mentions that she walks very little during the whole day. She also says that she is compliant with her medication regimen, but could not specify the exact medication what she is taking. She does not know her fingerstick blood sugar level or the blood pressure, which she monitors everyday at home. Her daughter is closely involved in her care; however, she does not live with her and lives at [place]. Noted the patient also gave history of chronic constipation every time it lasts for a couple of days and she takes MiraLAX for that on and off. REVIEW OF SYSTEMS: GENERAL: No fever. No chills or rigor. HEENT: No sore throat. No sinus congestion. CVS: No chest pain. No exertional shortness of breath. No leg swelling. RESPIRATORY: No shortness of breath. No cough. No wheezing. GENITOURINARY: No pain with urination. No increased frequency. No nocturia. GASTROINTESTINAL: No abdominal pain. No abdominal distention. No nausea or vomiting. NEUROLOGIC: No weakness. No seizures. SKIN: No rash, but significant bruising all over the body especially over the legs, arms, and back. The patient has significant history of falls and no itching . ALLERGIES: No seasonal allergy. No hayfever. ENDOCRINE: No heat intolerance. No cold intolerance. PSYCHIATRIC: No significant sadness, but has major depressive disorder history in the past. No crying spells. No history of panic attack. PATIENT'S NAME: DESIRAE ALEXANDER [facility] AGE: 70 Y [address] ROOM: [place] [address] [facility] ADMIT DATE: 11/06/2016 Consultation DISCHARGE DATE: FAMILY PHYSICIAN: Oksana Tristan APRN ATTENDING PHYSICIAN: SOMMER DOBBS PAST MEDICAL HISTORY: 1. Hypertension. 2. Type 2 diabetes with long-term use of insulin. 3. Chronic sciatica. 4. Major depressive disorder. 5. Degenerative joint disease. 6. Morbid obesity. 7. Nonalcoholic fatty liver disease. 8. Essential tremor. PAST SURGICAL HISTORY: Cholecystectomy in 2005, tonsillectomy, tubal ligation, and hysterectomy in 2009, secondary to fibroid. FAMILY HISTORY: Prostate cancer in maternal grandfather, coronary artery disease in father, hypertension in father, cancer in maternal aunt, diabetes in maternal grandmother and maternal aunt, and breast cancer in mother. SOCIAL HISTORY: Lives alone after the demise of her spouse, , nonalcoholic, no IV drug use, and ex-smoker. LABORATORY EVALUATION: CBC: Hemoglobin 9.3, WBC 4.3, and platelet 167. Chemistry: Sodium 144, potassium 4.7, chloride 112, bicarbonate 21, BUN 52, creatinine 5.9, calcium 13.2, glucose 91, CPK 12.8, A1c. 5.8, total protein 10.1, albumin 2.6, A/G ratio 0.3. Urinalysis specific gravity 1.015, pH 7, 1+ protein, 1+ blood, many bacteria. Urine sodium 111, urine creatinine 52. PHYSICAL EXAMINATION: VITAL SIGNS: 190/70, pulse is 70, respiratory rate 16, and 98.1 degrees Fahrenheit. GENERAL: Not in apparent distress. HEAD: Moist mucous membranes. Bilateral PERRLA, EOMI. NECK: No JVD, thyromegaly or lymphadenopathy. CVS: S1, S2 positive, irregular rate and rhythm, soft systolic murmur. CHEST: Bilateral air entry equal. No wheeze or rales. ABDOMEN: Soft, nontender, nondistended. Bowel sounds present. EXTREMITIES: No cyanosis, clubbing, jaundice. No dependent edema. MUSCULOSKELETAL: No limitation of range of motion. SKIN: No pallor, cyanosis, icterus. No cyanosis, no jaundice; however, significant bruising in the back over lower extremity and in the upper abdomen. Livedo reticularis like skin rash in bilateral lower extremities. FOOD AND BEVERAGE SERVER: Alert and oriented x3, some tremor; however, no other gross focal neurological deficit. PATIENT'S NAME: DESIRAE ALEXANDER [facility] AGE: 70 Y [address] ROOM: [place] [address] LOCATION: GPCU ADMIT DATE: 11/06/2016 Consultation DISCHARGE DATE: FAMILY PHYSICIAN: Oksana Tristan APRN ATTENDING PHYSICIAN: SOMMER DOBBS ASSESSMENT AND PLAN: 1. Acute kidney injury on chronic kidney disease. Presumably baseline creatinine of 1.3-1.4. Probably due to underlying diabetic nephropathy versus hypertensive nephrosclerosis. Acute kidney injury currently presumably secondary to prerenal versus hemodynamic acute tubular necrosis in context of ACEI use as well as hypercalcemia. Plan will be to aggressively volume expand the patient, no significant history of heart failure; so, we will give at least a couple of liters of normal saline bolus followed by 200 mL/hr. We will closely monitor the renal function with daily renal panel. We will avoid nephrotoxins, avoid hemodynamic insults, and maintain MAP more than 65. The patient has been encouraged to consume a low-salt TSH diet. The patient has significant azotemia, but has no significant clinical or biochemical indication for renal replacement therapy yet; however, we will closely monitor for the need of renal replacement therapy/dialysis in the near future. 2. Hypercalcemia with normocytic normochromic anemia and altered A/G ratio and multiple bruising, suspect differentials is paraproteinemia versus hyperparathyroidism versus immobilization induced. We will aggressively volume resuscitate at this point. We will decide about calcitonin later. Check renal panel tomorrow morning. We will check PTH, 25-hydroxy vitamin D, 125 dihydroxy vitamin D, N-telopeptide, SPEP, UPEP, and free light chains to rule out paraproteinemia. We will also do iron panel and ferritin to rule out iron-deficiency anemia. 3. Normocytic normochromic anemia. Query iron deficiency versus paraproteinemia induced. We will do iron panel to rule out iron deficiency. The patient probably will need an Oncology followup once the workups are back. 4. Hypertension. Currently, blood pressure is above the acceptable range. We agree with the plan to manage with clonidine, hydralazine, or amlodipine at this point, avoid HALEY blocking agent or diuretic at this point, aggressively volume expand the patient. 5. Diabetes, which is well-controlled, A1c is 5.8, we will defer management up to the primary team. Thank you for allowing me to participate in this patient's care. We will closely monitor the patient's progress along with you. FLORENTINOEKH KYLEE CASH MD /modl /[id number] d: 11/07/16 0021 t: 11/11/16 1014, CONSULTATION REPORT
[2016-11-06] MEDS ORDERED: VALIUM2 MG PO (13:04)
[2016-11-06] MEDS ORDERED: WELLBUTRIN SR150 MG PO (13:05)
[2016-11-06] MEDS ORDERED: NAPROSYN500 MG PO (13:05)
[2016-11-06] MEDS ORDERED: NEURONTIN300 MG PO (13:06)
[2016-11-06] MEDS ORDERED: LISINOPRIL-HCT1 EACH PO (13:06)
[2016-11-06] MEDS ORDERED: LIPITOR10 MG PO (13:07)
[2016-11-06] MEDS ORDERED: CLARITIN10 MG PO (13:07)
[2016-11-06] MEDS ORDERED: INDERAL40 MG PO (13:08)
[2016-11-06] MEDS ORDERED: GLUCOPHAGE500 MG PO (13:08)
[2016-11-06] MEDS ORDERED: ULTRAM50 MG PO (13:08)
[2016-11-06] MEDS ORDERED: SINEQUAN25 MG PO (13:09)
--- NOTE | 2016-11-06 13:51 | NUR ---
Pt is 70 y/o female admit for acute renal failure/dehydration for hospitalist. Allergies to band aids and therapeutic-M. REd and yellow bracelet on. Hx migraines,hayfever,weak legs,htn,hypercholest,RLS,heartburn,leaking/dribbling, stress incontinence,IBS. Resides at home by herself. States she has had 3 falls in past 3 weeks. She fell at home on the and laid there until the next morning. Taken by ambulance to [facility] where she has been inpatient since Wednesday. Pt moves with difficulty and is 2 assist. Came via ambulance from [place].
[2016-11-06 17:05] LABS: HEMATOCRIT 29.8 % (33.0-46.0); HEMOGLOBIN 9.3 g/dL (10.0-15.0); MCH 28.9 pg (27.0-34.0); MCHC 31.2 gm/dL (32.0-36.5); MCV 92.5 fl (83.0-98.0); PLATELET COUNT 167 K/uL (150-450); RBC 3.22 M/uL (3.50-5.50); RDW-CV 14.4 % (11.9-14.6); WBC 4.3 K/uL (4.0-11.0)
--- NOTE | 2016-11-06 17:07 | NUR ---
Significant Event: A/OX3, FORGETFUL, SOMETIMES SLOW TO RESPOND. PT. DOES HAVE SOME HIP PAIN, BUT IS OKAY TO REPOSITION IN BED TO HELP IT OUT, DANGLES AT BEDSIDE, TRANSFER 2 ASSIST TO BSC. VSS ON ROOM AIR, SBP 170-190'S, GOING TO GIVE BP MED TO HELP OUT. RIVERA PLACED WITH YELLOW URINE. SM HARD FORMED BM X1. FAMILY HERE. DR. CASH IS YET TO SEE PT. AC/HS ACCUCHECKS ON MILD SSI. PT. ON RENAL/DIABETIC DIET. BRUISE TO R)KNEE FROM RECENT FALL, SCABBED ABRASIONS TO L)UPPER & R)LOWER ARMS. Follow up: CONTINUE WITH POC.
[2016-11-06 17:17] LABS: BILIRUBIN URINE NEGATIVE (NEGATIVE); BLOOD URINE 50 /UL (NEGATIVE); COLOR URINE STRAW (YELLOW); GLUCOSE URINE NEGATIVE (NEGATIVE); KETONE URINE NEGATIVE (NEGATIVE); LEUKOCYTES URINE NEGATIVE /UL (NEGATIVE); NITRITE URINE NEGATIVE (NEGATIVE); PROTEIN URINE 30 mg/dL (NEGATIVE); SPEC GRAVITY URINE 1.015 (1.003-1.035); TURBIDITY URINE CLEAR (CLEAR); UROBILINOGEN URINE NORMAL (NORMAL)
[2016-11-06 17:30] LABS: AMORPHOUS URINE 1+ (NEGATIVE); EPITHELIAL URINE 0-2 #/HPF (NEGATIVE); WBC URINE 0-2 #/HPF (NEGATIVE)
[2016-11-06 17:31] LABS: BACTERIA URINE MANY (NEGATIVE)
[2016-11-06 17:31] LABS: ALBUMIN 2.6 gm/dL (3.5-5.0); ANION GAP 15.7 (10.0-19.0); POTASSIUM 4.7 mMol/L (3.7-5.1); TOTAL BILIRUBIN 0.4 mg/dL (0.0-1.5)
[2016-11-06 17:35] LABS: CALCIUM 13.2 mg/dL (8.5-10.5); CREATININE 5.9 mg/dL (0.5-1.1); TOTAL PROTEIN 10.1 g/dL (6.0-8.4)
[2016-11-06 18:03] LABS: ABSOLUTE NEUTROPHIL CT (ANC) 2.4 K/uL (1.8-7.8); BANDED NEUTROPHIL # 0.2 K/uL (0.0-0.1); BANDED NEUTROPHILS % 4 %; LYMPHOCYTE # 1.6 K/uL (0.8-4.0); LYMPHOCYTE % 38 %; MONOCYTE # 0.1 K/uL (0.0-1.0); SEGMENTED NEUTROPHIL # 2.2 K/uL (1.8-7.8); SEGMENTED NEUTROPHIL % 51 %
[2016-11-07 04:54] LABS: HEMATOCRIT 28.8 % (33.0-46.0); HEMOGLOBIN 8.8 g/dL (10.0-15.0); MCH 29.1 pg (27.0-34.0); MCHC 30.6 gm/dL (32.0-36.5); MCV 95.4 fl (83.0-98.0); MPV 10.5 fl (9.4-12.4); RBC 3.02 M/uL (3.50-5.50); RDW-CV 14.5 % (11.9-14.6)
[2016-11-07 04:55] LABS: PLATELET COUNT 111 K/uL (150-450)
[2016-11-07 05:21] LABS: ALBUMIN 2.3 gm/dL (3.5-5.0); ANION GAP 13.5 (10.0-19.0); MAGNESIUM 1.7 mg/dL (1.8-2.6); POTASSIUM 4.5 mMol/L (3.7-5.1)
[2016-11-07 05:22] LABS: CALCIUM 12.3 mg/dL (8.5-10.5); CREATININE 5.4 mg/dL (0.5-1.1)
--- NOTE | 2016-11-07 05:28 | NUR ---
Significant Event: Patient has been drowsy throughout the night but alerts easily to voice. Oriented x3 but frequently forgetful. Vital signs stable. On room air. Patient received 2 liter NS boluses last night and currently has NS infusing at 200 mL/hr. Young in place with 1450 mL out. Creatinine this AM is 5.4, down from 5.9. GFR is 8. Follow up: Continue to monitor per plan of care.
[2016-11-07 06:01] LABS: LYMPHOCYTE % 28 %; SEGMENTED NEUTROPHIL # 2.2 K/uL (1.8-7.8); SEGMENTED NEUTROPHIL % 56 %
[2016-11-07 06:04] LABS: ABSOLUTE NEUTROPHIL CT (ANC) 2.3 K/uL (1.8-7.8); BANDED NEUTROPHILS % 1 %; LYMPHOCYTE # 1.5 K/uL (0.8-4.0); MONOCYTE # 0.1 K/uL (0.0-1.0)
[2016-11-07 09:13] LABS: BICARBONATE 19.6 mmol/L (18.0-23.0); PCO2 38 mmHg (35-45); PO2 85 mmHg (80-90)
--- NOTE | 2016-11-07 11:55 | NUR ---
AROUND 0840 WENT INTO PATIENTS ROOM OXYGEN SATS WERE IN THE MID 80'S, APPLIED O2 @ 6L PER NC. TRIED TO WAKE PATIENT UP, VERY HARD TO AROUSE, WOULD MOVE ALL 4 EXTREMITIES AT TIMES, WOULD MOAN SOME BUT NOT OPEN EYES LIKE SHE DID AROUND 0720 MORNING ASSESSMENT. CALLED KARENA BARRAGANHOME CARE AIDE NURSE TO COME INTO ROOM AND CALLED DR. DIAL HER HOSPITALIST FOR THE DAY TO COME CHECK PATIENT. BP AT THIS TIME CLIMBED TO 209/99, PT. MORE UNRESPONSIVE, VERY HARD TO AROUSE. TRIED STERNAL RUB & PT. WOULD ONLY MOAN, WOULD NOT OPEN UP EYES AT ALL. PT. WOULD STILL MOVE IN BED, ATTEMPTING TO GET UP, PUPILS REACTIVE, REPOSITIONED HERSELF TO SIDE OF BED. ABG'S DONE, AWAITING CT SCAN TO GET DONE. DR. DIAL WITNESSED POSSIBLE SEIZURE WITH PATIENT. AT 0940 SPANISH INSTRUCTOR CALLED, CRASH CART TO ROOM. SOME BLOODY SPUTUM COMING OUT OF MOUTH ATTEMPTING TO SUCTION PT. WITH NO SUCCESS D/T PT. CLAMPING DOWN WITH MOUTH. DAUGHTER NOTIFIED @ 0948, SAID SHE WOULD GET HERE SOON SHE COULD. PT. INTUBATED, TAKEN DOWN TO CT THEN TO ICU. REPORT GIVEN TO SAM THURSTON.
[2016-11-07 13:11] LABS: BILIRUBIN URINE NEGATIVE (NEGATIVE); BLOOD URINE 150 /UL (NEGATIVE); COLOR URINE YELLOW (YELLOW); GLUCOSE URINE NEGATIVE (NEGATIVE); KETONE URINE NEGATIVE (NEGATIVE); LEUKOCYTES URINE NEGATIVE /UL (NEGATIVE); NITRITE URINE NEGATIVE (NEGATIVE); PROTEIN URINE 30 mg/dL (NEGATIVE); SPEC GRAVITY URINE 1.015 (1.003-1.035); TURBIDITY URINE CLEAR (CLEAR); UROBILINOGEN URINE NORMAL (NORMAL)
[2016-11-07 13:20] LABS: BACTERIA URINE NEGATIVE (NEGATIVE); EPITHELIAL URINE NEGATIVE #/HPF (NEGATIVE); RBC URINE 20-50 #/HPF (NEGATIVE); WBC URINE NEGATIVE #/HPF (NEGATIVE)
--- NOTE | 2016-11-07 17:17 | NUR ---
Significant Event:Patient intubated during TUBERCULOSIS SPECIALIST this am and transferred to ICU. Head CT and VQ scan completed as ordered. Sedated on propofol. During sedation vacation did localize pain and open eyes to pain. Young with large UOP, clear dilute urine. Lasix 80mg IV given as ordered. OG placed to LIS. PIV x3 in place. SBP has been high 150-200s. Scheduled norvasc and inderal given. PRN catapres also given. SBP remains high with lower doses of sedation. Daughter at bedside. ECHO also completed. FiO2 on vent weaned to 30%. Follow up:continue care. Wean sedation and vent as tolerated, extubate in am.
[2016-11-07 18:41] LABS: ALBUMIN 2.1 gm/dL (3.5-5.0); ANION GAP 13.6 (10.0-19.0); MAGNESIUM 1.7 mg/dL (1.8-2.6); PHOSPHORUS 4.8 mg/dL (2.5-4.9); POTASSIUM 4.6 mMol/L (3.7-5.1)
[2016-11-07 18:45] LABS: CALCIUM 12.2 mg/dL (8.5-10.5); CREATININE 5.4 mg/dL (0.5-1.1)
[2016-11-08 04:43] LABS: BICARBONATE 22.6 mmol/L (18.0-23.0); PCO2 31 mmHg (35-45); PO2 80 mmHg (80-90)
--- NOTE | 2016-11-08 05:04 | NUR ---
Significant Event: PROPOFOL ON AT 10MCG/KG/MIN FOR MOST OF NIGHT. OFF AT 0500 THIS AM. PATIENT HAS SPONTANEOUS MOVEMENTS OF EXTREMITIES. DOES NOT FOLLOW COMMANDS. EYES DEVIATED DOWNWARD. DOES NOT TRACK. CONTINUES ON VENT, A/C, 30% FIO2, OVERBREATHES SET RATE. LUNG SOUNDS SLIGHLTY COARSE TOWARD AM. SMALL AMOUNT OF WHILE/CLEAR SECRETIONS FROM ETT. SR. SBP ELEVATED AT BEGINNING OF SHIFT. CARDENE DRIP STARTED. OFF AT 0410. OG TO LIS. 500ML OUT. HYPOACTIVE BOWEL SOUNDS. SMALL BM X1. 2785ML UOP. BATH COMPLETE. Follow up: CONTINUE TO MONITOR.
--- NOTE | 2016-11-08 05:06 | NUR ---
No vent changes made this shift. Continues on AC, RR 16, vT 500ml, Peep5, FiO2 30%. EtCO2 26-31 this shift. BrSs slightly coarse, diminished bases. Cleared with suctioning of small-moderate amounts of cream, thick secretions from ETT. Pt rested on light sedation t/o the night. Sedation weaned off this morning and more restless, but not following any directions at this time. Continue to work toward weaning ventilator.
[2016-11-08 05:36] LABS: HEMATOCRIT 28.8 % (33.0-46.0); HEMOGLOBIN 9.2 g/dL (10.0-15.0); MCH 28.6 pg (27.0-34.0); MCHC 31.9 gm/dL (32.0-36.5); MPV 9.5 fl (9.4-12.4); PLATELET COUNT 124 K/uL (150-450); RBC 3.22 M/uL (3.50-5.50); RDW-CV 14.1 % (11.9-14.6); WBC 4.7 K/uL (4.0-11.0)
[2016-11-08 05:38] LABS: MCV 89.4 fl (83.0-98.0)
[2016-11-08 05:50] LABS: ALBUMIN 2.3 gm/dL (3.5-5.0); ANION GAP 13.8 (10.0-19.0); MAGNESIUM 1.8 mg/dL (1.8-2.6); PHOSPHORUS 6.2 mg/dL (2.5-4.9); POTASSIUM 3.8 mMol/L (3.7-5.1)
[2016-11-08 06:14] LABS: ABSOLUTE NEUTROPHIL CT (ANC) 3.2 K/uL (1.8-7.8); LYMPHOCYTE # 1.4 K/uL (0.8-4.0); LYMPHOCYTE % 28 %; MONOCYTE # 0.1 K/uL (0.0-1.0); SEGMENTED NEUTROPHIL # 3.2 K/uL (1.8-7.8); SEGMENTED NEUTROPHIL % 67 %
[2016-11-08 06:24] LABS: CREATININE 5.4 mg/dL (0.5-1.1)
--- NOTE | 2016-11-08 16:45 | NUR ---
Significant Event: PT sedated, propofol at 30mcg/hg/min. Spontaneous movements. does not follow commands, does not open eyes-deviated downward, does not track. CT of chest this shift. Young patent. PIV x3 patent. Moderate amount of secretions, thick creamy, lungs slighlty coarse. Cardene gtt at 7.5 to keep SBP less than 160. NS at 150ml/hr. Zosyn started. Follow up:
--- NOTE | 2016-11-08 17:24 | NUR ---
D-TRIED CPAP TODAY X 2HRS. TV 450-500. RR 18-25. TOLERATED WELL. UNTIL SATS STARTED TO DROP. RETURNED PT TO RATE AND INCREASED FIO2 TO .60. NOTIFIED MD. WENT TO CT WITHOUT DIFFICULTY. SENT CULTURE. DR HERRMANN CAME, ORDERED PULM CONSULT. DR PÉREZ CAME AND INCREASED PEEP TO [address] SHOWED ATELECTASIS AND MASS ON THYROID? INCREASED CALCIUM. PLAN-MAINTAIN SUPPORT
[2016-11-08 18:59] LABS: ALBUMIN 2.2 gm/dL (3.5-5.0); CALCIUM 11.8 mg/dL (8.5-10.5); CREATININE 5.3 mg/dL (0.5-1.1)
[2016-11-09 04:33] LABS: BICARBONATE 22.4 mmol/L (18.0-23.0); PCO2 33 mmHg (35-45)
[2016-11-09 04:35] LABS: PO2 125 mmHg (80-90)
--- NOTE | 2016-11-09 04:37 | NUR ---
Patient currently on the ventilator. FiO2 weaned from 60% down to 40% currently. O2 sats were 98-100 throughout the shift. ETCO2 was 29-32. Breathsounds clear and diminished throughout bilaterally. Suctioning small amounts of thick creamy secretions. Will continue to monitor patient.
[2016-11-09 05:20] LABS: HEMATOCRIT 29.3 % (33.0-46.0); HEMOGLOBIN 9.3 g/dL (10.0-15.0); MCHC 31.7 gm/dL (32.0-36.5); MCV 91.3 fl (83.0-98.0); MPV 9.9 fl (9.4-12.4); PLATELET COUNT 104 K/uL (150-450); RBC 3.21 M/uL (3.50-5.50); RDW-CV 14.4 % (11.9-14.6); WBC 5.3 K/uL (4.0-11.0)
--- NOTE | 2016-11-09 05:25 | NUR ---
Significant Event: PROPOFOL WEANED OFF THIS AM. DOES NOT FOLLOW COMMANDS. DOES NOT OPEN EYES, HAS SPONTANEOUS MOVEMENTS OF EXTREMITIES. HR 70-80'S. CARDENE DRIP OFF ALL NIGHT. SBP 100-150'S. AFEBRILE. CONTINUES ON VENT, A/C, WEANED TO 40% FIO2. OVERBREATHES SET RATE. LUNG SOUNDS CLEAR/DIM, DIM IN BASES. NG TO LIS, NO MEASURABLE OUTPUT. SMEAR BM X1 OVERNIGHT. 780ML UOP FROM RIVERA. BATH COMPLETE. NS CONTINUES AT 150ML/HR. Follow up: CONTINUE TO MONITOR. MAY NEED PICC/CENTRAL LINE PLACEMENT.
[2016-11-09 05:32] LABS: ANION GAP 15.6 (10.0-19.0); CALCIUM 10.7 mg/dL (8.5-10.5); MAGNESIUM 1.6 mg/dL (1.8-2.6); PHOSPHORUS 5.7 mg/dL (2.5-4.9); POTASSIUM 3.6 mMol/L (3.7-5.1)
[2016-11-09 05:38] LABS: CREATININE 5.1 mg/dL (0.5-1.1)
[2016-11-09 06:31] LABS: ABSOLUTE NEUTROPHIL CT (ANC) 4.5 K/uL (1.8-7.8); BANDED NEUTROPHIL # 0.1 K/uL (0.0-0.1); BANDED NEUTROPHILS % 1 %; LYMPHOCYTE # 0.7 K/uL (0.8-4.0); LYMPHOCYTE % 13 %; MONOCYTE # 0.2 K/uL (0.0-1.0); SEGMENTED NEUTROPHIL # 4.4 K/uL (1.8-7.8); SEGMENTED NEUTROPHIL % 83 %
--- NOTE | 2016-11-09 15:40 | NUR ---
No family present at this time. Reviewed chart and demographics and patient lives alone in [place]. Patient does have a daughter that lives in [place]. Will follow.
--- NOTE | 2016-11-09 16:41 | NUR ---
Significant Event: PT remains sedated on propofol. VSS. Vented at 30%, A/C mode. Urine collection for 24 hours, yeboah bag on ice, barn in room in ice. PT remains in bilateral wrist restraints. Midline IV place to L)upper arm, ok to use for blood draws, no pressors through midline IV. Antibiotics changed. Tube feeding started at 20ml/hr. PT repositioned frequently. Follow up:
[2016-11-09 17:50] LABS: ANION GAP 11.5 (10.0-19.0); CALCIUM 10.7 mg/dL (8.5-10.5); PHOSPHORUS 5.4 mg/dL (2.5-4.9); POTASSIUM 3.5 mMol/L (3.7-5.1)
[2016-11-09 17:53] LABS: ALBUMIN 1.9 gm/dL (3.5-5.0); CREATININE 4.8 mg/dL (0.5-1.1)
[2016-11-10 04:46] LABS: HEMATOCRIT 26.6 % (33.0-46.0); HEMOGLOBIN 8.4 g/dL (10.0-15.0); MCHC 31.6 gm/dL (32.0-36.5); MCV 91.7 fl (83.0-98.0); MPV 10.1 fl (9.4-12.4); PLATELET COUNT 96 K/uL (150-450); RDW-CV 14.6 % (11.9-14.6); WBC 4.2 K/uL (4.0-11.0)
--- NOTE | 2016-11-10 05:00 | NUR ---
No changes made to vent settings this shift. FiO2 currently at 30% for O2 sats of 97-100% ETCO2 was 31-36 throughout the shift. Breathsounds slightly coarse throughout bilaterally, clears with suction. Suctioning small to large amounts of thick creamy secretions.
[2016-11-10 05:03] LABS: ANION GAP 12.2 (10.0-19.0); PHOSPHORUS 4.9 mg/dL (2.5-4.9); POTASSIUM 3.2 mMol/L (3.7-5.1)
[2016-11-10 05:06] LABS: ALBUMIN 1.8 gm/dL (3.5-5.0); CALCIUM 11.4 mg/dL (8.5-10.5); CREATININE 4.5 mg/dL (0.5-1.1)
[2016-11-10 05:30] LABS: BANDED NEUTROPHIL # 0.6 K/uL (0.0-0.1); BANDED NEUTROPHILS % 14 %; LYMPHOCYTE # 1.1 K/uL (0.8-4.0); LYMPHOCYTE % 26 %; SEGMENTED NEUTROPHIL # 2.4 K/uL (1.8-7.8); SEGMENTED NEUTROPHIL % 57 %
--- NOTE | 2016-11-10 05:41 | NUR ---
Significant Event: Patient has been sedated throughout shift. VSS. PERRLA. Afebrile. Eyes deviate to the left. Spontaneous movement. Withdrawals to pain and/or stimuli. SR-2+ pulses. SCDS on-Heparin. SBP one-teen's to 120's, HR 60-70's. Catatpres for SBP greater than 180. Vent, a/c-FiO2 30. C/D throughout-does clear with cough-thick sputum. OG-osmolite 1.5 at goal rate of 45 ml/hr. Accu checks ACHS-moderate scale. Last BM-11/09, hypoactive x4. Young cath-24 hour urine collection, will end 11/10 @ 1130. PIV's- R) FA sl'd, L) wrist NS @ 100, L) upper midline propofol at 20 mcg/kg/min. Bath completed. Turn q2h. Follow up: Wean vent and wean sedation. Continue to monitor.
--- NOTE | 2016-11-10 17:24 | NUR ---
D: FOUND UNRESPONSIVE I: VENT R: PT REMAINED ON 30% FIO2 T/O DAY, BS C&D TO SL COARSE T/O, SXNED OUT SMALL TO MOD THICK CREAMY SECRETIONS, PT WAS IN CPAP/PS 5/8 FOR ABOUT 2 HRS TODAY & TOLERATED WELL, NIF OF -58, BUT PT WAS NOT FOLLOWING ANY COMMANDS, WEANED PEEP TO 5 TODAY WELL P: CONT.8
[2016-11-10 17:47] LABS: PHOSPHORUS 4.2 mg/dL (2.5-4.9)
[2016-11-10 17:48] LABS: ALBUMIN 1.8 gm/dL (3.5-5.0); ANION GAP 13.3 (10.0-19.0); CALCIUM 11.9 mg/dL (8.5-10.5); CREATININE 4.2 mg/dL (0.5-1.1); POTASSIUM 4.3 mMol/L (3.7-5.1)
--- NOTE | 2016-11-10 19:32 | NUR ---
SIGNIFICANT EVENT: PATIENT OFF SEDATION SINCE 11. PATIENT DOES NOT FOLLOW ANY COMMANDS. PURPOSEFUL MOVMENTS NOTED IN ALL 4 EXTREMITIES. OPENS EYES TO PAIN. PUPILS EQUAL AND REACTIVE. UPWARD DEVIATION AND TO R) OBSERVED. PATIENT DOES NOT TRACK. EEG AT BEDSIDE THIS AM. PATIENT WITHDRAWS TO PAIN IN ALL 4 EXTREMITIES. PATIENT HAS BEEN IN SINUS RHYTHM, HR 70-80S. PULSES PALPABLE THROUGHOUT. BP STABLE, SBP 110-140S, MAP>65. AFEBRILE. EDEMA PRESENT. PATIENT HAS BEEN ON THE VENT, A/C MODE THROUGHOUT MAJORITY OF THE SHIFT CPAP 5/5 FOR 2 HOURS. OVERBREATHS A/C MODE, RR 12-22, TV 500-700, PEEP 5, FIO2 30%. ETCO WITHIN NORMAL. BOWERL SOUNDS PRESENT, NO BM. OG INFUSING OSMOLITE AT 45ML/HR=GOAL, MAX RESIDUAL 140ML. RIVERA INTACT, ADEQUATE URINE OUTPUT. NO NEW SKIN ISSUES. REPOSITIONED EVERY 2 HOURS. 3 IV, NO COMPLICATIONS. FOLLOW UP: CONTINUE TO MONITOR. BIOPSY OF NECK MASS IN AM.
--- NOTE | 2016-11-11 05:48 | NUR ---
Significant Event: PATIENT SEDATED ON PROPOFOL GTT. SEDATION LIGHTENED FOR ASSESSMENT. INCONSISTENTLY FOLLOWING COMMANDS IN LOWER EXTREMITIES. NO COMMANDS TO UPPER EXTREMITIES. SPONTANEOUS MOVEMENT OF ALL EXTREMITIES. GAG AND COUGH INTACT. HYPERTENSIVE THROUGHOUT SHIFT. PRN CATAPRESS GIVEN. ORDER CHANGED TO PRN IVP HYDRALAZINE. AFEBRILE. CONTINUES ON VENT AC 12/500/8/30%. ETCO2 33-35%. RIVERA WITH GOOD UOP. NO BM. TF AT GOAL PER OGT. MIDLINE TO LEFT UPPER ARM, NO BLOOD RETURN. PIV X2. PROPOFOL AND NS RUNNING. Follow up: CPAP?
[2016-11-11 07:16] LABS: MCH 28.8 pg (27.0-34.0); MCHC 31.7 gm/dL (32.0-36.5); MCV 90.9 fl (83.0-98.0); MPV 9.4 fl (9.4-12.4); PLATELET COUNT 96 K/uL (150-450); RBC 2.64 M/uL (3.50-5.50); RDW-CV 14.6 % (11.9-14.6); WBC 4.6 K/uL (4.0-11.0)
[2016-11-11 07:21] LABS: INR - (THERAPEUTIC) 0.95 (0.92-1.07)
[2016-11-11 07:25] LABS: HEMOGLOBIN 7.6 g/dL (10.0-15.0)
[2016-11-11 07:28] LABS: ANION GAP 10.9 (10.0-19.0); CREATININE 3.8 mg/dL (0.5-1.1); PHOSPHORUS 4.4 mg/dL (2.5-4.9); POTASSIUM 3.9 mMol/L (3.7-5.1)
[2016-11-11 07:33] LABS: ALBUMIN 1.7 gm/dL (3.5-5.0)
[2016-11-11 08:27] LABS: ABSOLUTE NEUTROPHIL CT (ANC) 2.7 K/uL (1.8-7.8); BANDED NEUTROPHIL # 0.3 K/uL (0.0-0.1); BANDED NEUTROPHILS % 6 %; LYMPHOCYTE # 1.4 K/uL (0.8-4.0); LYMPHOCYTE % 31 %; MONOCYTE # 0.1 K/uL (0.0-1.0); SEGMENTED NEUTROPHIL # 2.4 K/uL (1.8-7.8); SEGMENTED NEUTROPHIL % 53 %
[2016-11-11 12:17] LABS: TIME 24 h (()); VOLUME 1680 mL (())
--- NOTE | 2016-11-11 13:38 | NUR ---
A - NUTRITION FOLLOW-UP. VENT, SEDATED W/ PROPOFOL AT 23.6 ML/UH=525 LIPIDS KCAL. TO HAVE NECK BX TODAY, TF ON HOLD. LABS: GLU 112, BUN 48, CREA 3.8, ALB 1.7, A1C 5.8%. BUN/CREA IMPROVED. NEW MEDS: ZYVOX. DIET: TF W/ OSMOLITE 1.5 AT 45ML/HR. ON HOLD AT THIS TIME FOR PROCEDURE. LAST RECORDED RESIDUAL WAS 50ML. HIGHEST RESIDUAL WAS 230ML PER RECORD. W/ PROPOFOL, PT IS GETTING 2243 KCAL (103% OF MAX KCAL NEEDS), 68 GRAMS PROTEIN, 823ML FREE WATER. EST NEEDS: 8513-8201 KCAL, 61 GRAMS PROTEIN, FLUID NEEDS: 1ML/KCAL D - INADEQUATE ORAL INTAKE RELATED INABILITY TO FEED ORALLY EVIDENCED BY VENT/SEDATION AND NEED FOR ENTERAL NUTRITION. I - CONTINUE WITH OSMOLITE 1.5 AT 45ML/HR. M/E - PT WILL BE ABLE TO TOLERATE ENTERAL NUTRITION AND MEET >75% OF NEEDS IN 2-4 DAYS.
--- NOTE | 2016-11-11 13:54 | NUR ---
SIGNIFICANT EVENT: PATIENT SEDATED WITH PROPOFOL AT 30MCG/KG/MIN. PAUSED FOR DURATION OF ASSESSMENT. PATIENT DOES NOT OPEN EYES TO VOICE OR PAIN. PUPILS EQUAL AND REACTIVE. PATIENT DOES NOT FOLLOW ANY COMMANDS. PATIENT HAS SPONTANEOUS/ PURPOSEFUL MOVEMENTS IN ALL 4 EXTREMITIES. PATIENT HAS BEEN IN SINUS RHYTHM HR 60-70S. BP STABLE SBP 110-140S. HYDRALAZING 20MG IV GIVEN X1 FOR SBP >185. PULSES PALPABLE THROUGHOUT. EDEMA PRESENT. AFEBRILE. PATIENT HAS BEEN ON THE VENT A/C MODE, FIO2 30%, RR 12, TV 500, PEEP 5. OVER BREATHS SETTINGS. ETCO2 WITHIN NORMAL RANGE. SPONT COUGH, INDUCED GAG. SATS MID TO UPPER 90S. BOWEL SOUNDS PRESENT, NO BM. TUBE FEEDING OFF AT 11 FOR PLANNED PROCEDURE. RIVERA INTACT, ADEQUATE URINE OUTPUT. NO NEW SKIN ISSUES. REPOSITIONED EVERY 2 HOURS. PLAN TO GO DOWN FOR NECK MASS BIOPSY AT 1430, TUNNELED CATHETER PLACEMENT, AND TPE. FAMILY AT BEDSIDE. FOLLOW UP: CONTINUE TO MONITOR, BONE MARROW BIOPSY IN AM
--- NOTE | 2016-11-11 17:47 | NUR ---
PT VENETD ON 30% SATS 96-100%, BREATH SOUNDS SLIGHTLY COARSE THROUGHOUT, SXN A SMALL AMOUNT OF CREAMY SPUTUM, ETCO2 32-36 MOST OF THE DAY, PT WAS TAKEN DOWN FOR PROCEDURES AROUND 1430, WILL CONTINUE TO TRY AND WEAN PT TOLERATES
[2016-11-11 18:16] LABS: ALBUMIN 3.3 gm/dL (3.5-5.0); CREATININE 3.3 mg/dL (0.5-1.1); PHOSPHORUS 4.3 mg/dL (2.5-4.9); POTASSIUM 3.7 mMol/L (3.7-5.1)
[2016-11-11 18:19] LABS: ANION GAP 13.7 (10.0-19.0); CALCIUM 11.5 mg/dL (8.5-10.5)
--- NOTE | 2016-11-12 05:13 | NUR ---
No vent changes made this shift. EtCO2 mid 30s this shift. BrSs diminished bases, suctioned small amounts of yellow, thick secretions from ETT. Continue per plan of care.
--- NOTE | 2016-11-12 05:42 | NUR ---
Significant Event: Patient continues to be intubated and sedated. Afebrile. HR 50-70's. SBP 100'S -150'S. Keep SBP less than 180. FIO2-30, PEEP-5, TV-500. TF- OSMOLITE AT 45 ML/HR. 0300-RES 460. ACCU CHECKS ACHS- BS 93. RIVERA TO DD. GENERALIZED ECCHYMOSIS AND REDNESS. Follow up: BONE MARROW BIOPSY IN AM
[2016-11-12 05:49] LABS: HEMATOCRIT 26.3 % (33.0-46.0); HEMOGLOBIN 8.2 g/dL (10.0-15.0); MCH 28.7 pg (27.0-34.0); MCHC 31.2 gm/dL (32.0-36.5); MPV 10.3 fl (9.4-12.4); PLATELET COUNT 81 K/uL (150-450); RBC 2.86 M/uL (3.50-5.50); RDW-CV 14.9 % (11.9-14.6); WBC 4.4 K/uL (4.0-11.0)
[2016-11-12 06:08] LABS: ALBUMIN 3.2 gm/dL (3.5-5.0); CREATININE 3.2 mg/dL (0.5-1.1); MAGNESIUM 1.8 mg/dL (1.8-2.6); PHOSPHORUS 5.5 mg/dL (2.5-4.9); POTASSIUM 4.1 mMol/L (3.7-5.1)
[2016-11-12 06:10] LABS: ANION GAP 12.1 (10.0-19.0); CALCIUM 12.9 mg/dL (8.5-10.5)
[2016-11-12 06:21] LABS: LYMPHOCYTE % 17 %; SEGMENTED NEUTROPHIL # 2.7 K/uL (1.8-7.8); SEGMENTED NEUTROPHIL % 61 %
[2016-11-12 06:22] LABS: ABSOLUTE NEUTROPHIL CT (ANC) 2.9 K/uL (1.8-7.8); BANDED NEUTROPHIL # 0.2 K/uL (0.0-0.1); BANDED NEUTROPHILS % 4 %; LYMPHOCYTE # 1.3 K/uL (0.8-4.0)
--- NOTE | 2016-11-12 10:57 | NUR ---
A - NUTRITION FOLLOW-UP. VENT, PROPOFOL AT 15.7ML/NK=920 KCAL. HAD BONE MARROW BIOPSY THIS MORNING. HD CATH PLACED YESTERDAY, PLAN FOR HD TODAY. LABS: NA 147, GLU 119, BUN 42, CREA 3.2, ALB 3.2, PO4 5.5, MG 1.8. MEDS: REVIEWED. DIET: TF W/ OSMOLITE 1.5 AT 45ML/HR. LAST RECORDED RESIDUAL WAS 400ML. HIGH PO4 NOTED. EST NEEDS: 0786-5463 KCAL, 61 GRAMS PROTEIN, FLUID NEEDS: PER MD D - INADEQUATE ORAL INTAKE RELATED TO INABILITY TO FEED ORALLY EVIDENCED BY VENT/SEDATION AND NEED FOR ENTERAL NUTRITION. I - 1) RECOMMEND CHANGING TUBE FEEDING FORMULA TO NEPRO AT 40ML/HR, WATER FLUSHES PER MD TO PROVIDE 1728 KCAL (2142 KCAL W/ PROPOFOL), 78 GRAMS PROTEIN, 698 ML FREE WATER. START AT 15ML/HR, INCREASE 15ML/HR EVERY 4-8 HR TO GOAL RATE. 2) RECOMMEND GASTROKINETIC AGENT TO HELP WITH TF TOLERANCE. M/E - GOAL: PT WILL BE ABLE TO TOLERATE ENTERAL NUTRITION AND MEET >75% OF PT'S NEEDS IN 2-4 DAYS.
--- NOTE | 2016-11-12 16:18 | NUR ---
PT VENTED ON 30% SATS 94-98%, BREATH SOUNDS SLIGHTLY COARSE AT TIMES, SXN A SMALL AMOUNT OF CREAMY SPUTUM, ETCO2 26-30 MOST OF THE DAY, WILL CONTINUE TO MONITOR AND WEAN PT TOLERATES
--- NOTE | 2016-11-12 17:24 | NUR ---
Significant Events: Patient continues to be sedated on Propofol decreased to 20 mcg/kg/min. Does not follow commands, does withdraw in all 4 ext, pupils equal and reactive, gag & cough induced and overbreathes vent set rate. SR, SBP 140-160s. HD completed this afternoon. Dr Barnett at bedside this AM for bone marrow biopsy. Young patent clear yellow urine. Supp given until has BM. Restraints d/c'd d/t no spontaneous movement at this time. Follow up: continue
[2016-11-12 18:56] LABS: ALBUMIN 3.1 gm/dL (3.5-5.0); ANION GAP 11.5 (10.0-19.0); CALCIUM 10.5 mg/dL (8.5-10.5); CREATININE 1.9 mg/dL (0.5-1.1); PHOSPHORUS 2.8 mg/dL (2.5-4.9); POTASSIUM 3.5 mMol/L (3.7-5.1)
--- NOTE | 2016-11-13 03:47 | NUR ---
Significant Event: Patient remains intubated/sedated. See neuro assessment. HR 80s. SBP 140s-170s. Tmax is 99.9. A/C mode. FIO2 30%. PEEP 5. Rate 12. TV 500. Active BS, smear BMs. TF at 45 ml/hr, goal. Highest residual-200 ml. Young to DD, 2525 ml out. Follow up: Neuro status-possible extubation?
[2016-11-13 05:15] LABS: HEMATOCRIT 25.2 % (33.0-46.0); HEMOGLOBIN 8.4 g/dL (10.0-15.0); MCH 29.8 pg (27.0-34.0); MCHC 33.3 gm/dL (32.0-36.5); MCV 89.4 fl (83.0-98.0); MPV 10.1 fl (9.4-12.4); PLATELET COUNT 83 K/uL (150-450); RBC 2.82 M/uL (3.50-5.50); RDW-CV 14.6 % (11.9-14.6); WBC 6.2 K/uL (4.0-11.0)
--- NOTE | 2016-11-13 05:23 | NUR ---
No vent changes made this shift. EtCO2 29-31 this shift. BrSs slightly coarse at times, suctioning small amounts of thick, cream secretions from ETT. Lightly sedated, spontaneous movement, coughs, but does not follow directions or opens eyes. Continue per plan of care.
[2016-11-13 05:30] LABS: ALBUMIN 2.8 gm/dL (3.5-5.0); ANION GAP 12.6 (10.0-19.0); CALCIUM 11.1 mg/dL (8.5-10.5); CREATININE 2.4 mg/dL (0.5-1.1); MAGNESIUM 1.8 mg/dL (1.8-2.6); PHOSPHORUS 3.6 mg/dL (2.5-4.9); POTASSIUM 3.6 mMol/L (3.7-5.1)
[2016-11-13 05:54] LABS: LYMPHOCYTE % 12 %; SEGMENTED NEUTROPHIL # 4.3 K/uL (1.8-7.8); SEGMENTED NEUTROPHIL % 70 %
[2016-11-13 05:55] LABS: ABSOLUTE NEUTROPHIL CT (ANC) 4.5 K/uL (1.8-7.8); BANDED NEUTROPHIL # 0.2 K/uL (0.0-0.1); BANDED NEUTROPHILS % 3 %; LYMPHOCYTE # 1.5 K/uL (0.8-4.0); MONOCYTE # 0.1 K/uL (0.0-1.0)
[2016-11-13 07:06] LABS: COMMENT See Comments (()); INTERPRETATION Negative (Negative)
[2016-11-13 13:49] LABS: ALBUMIN 2.4 g/dL (3.3-4.8); ALBUMIN 39.4 % (45.0-80.0); ALPHA 1 0.6 g/dL (0.1-0.4); ALPHA 2 1.1 g/dL (0.5-1.1); GAMMA 1.2 g/dL (0.6-1.5)
--- NOTE | 2016-11-13 15:00 | NUR ---
Stopped by her room several times today and no family present. Will follow.
[2016-11-13 15:12] LABS: ALBUMIN 3.8 gm/dL (3.5-5.0); ANION GAP 11.3 (10.0-19.0); CALCIUM 8.9 mg/dL (8.5-10.5); CREATININE 1.3 mg/dL (0.5-1.1); PHOSPHORUS 2.3 mg/dL (2.5-4.9); POTASSIUM 3.3 mMol/L (3.7-5.1)
[2016-11-13 15:32] LABS: PROTEIN [CALC] 4082 mg/24h (())
[2016-11-13 16:27] LABS: ANION GAP 11.5 (10.0-19.0); CREATININE 1.4 mg/dL (0.5-1.1); PHOSPHORUS 2.6 mg/dL (2.5-4.9); POTASSIUM 3.5 mMol/L (3.7-5.1)
--- NOTE | 2016-11-13 18:30 | NUR ---
Patient received dialysis and chemotherapy today. LS coarse, abd soft with smears of stool. No signs of pain noted. Propofol and NS infusing as ordered. Young patent with light yellow urine 2250 ml out this shift. Afebrile. Patient on vent as ordered. Does over breathe the vent. SX small amt of white secretions suctioned. PIV intact. Patient is a lab draw.
--- NOTE | 2016-11-13 19:08 | NUR ---
Patient consent was signed by the daughter. Education was given about each medication. Bortezomib 3.5mg was given subcutaneous in the abdomen, L) of the umbilicus. Cyclophosphamide 720mg was given via feeding tube. Patient tolerated well.
--- NOTE | 2016-11-14 04:58 | NUR ---
PT. ON VENT 30% FIO2 WITH SATS 95-98%. ETCO2 34-36. BREATH SOUNDS ARE SLIGHTLY COARSE T/O. SUCTIONED A SMALL AMOUNT OF THICK CREAM SECREIONTS. WILL CONTINUE TO FOLLOW UNTIL FURTHER NOTICE.
[2016-11-14 05:11] LABS: HEMATOCRIT 25.5 % (33.0-46.0); HEMOGLOBIN 8.2 g/dL (10.0-15.0); MCHC 32.2 gm/dL (32.0-36.5); MCV 90.1 fl (83.0-98.0); MPV 10.4 fl (9.4-12.4); PLATELET COUNT 94 K/uL (150-450); RBC 2.83 M/uL (3.50-5.50); RDW-CV 14.7 % (11.9-14.6); WBC 8.8 K/uL (4.0-11.0)
[2016-11-14 05:21] LABS: ALBUMIN 3.4 gm/dL (3.5-5.0); PHOSPHORUS 4.2 mg/dL (2.5-4.9)
[2016-11-14 05:22] LABS: ANION GAP 11.8 (10.0-19.0); CALCIUM 11.7 mg/dL (8.5-10.5); POTASSIUM 3.8 mMol/L (3.7-5.1)
[2016-11-14 05:54] LABS: ABSOLUTE NEUTROPHIL CT (ANC) 6.4 K/uL (1.8-7.8); BANDED NEUTROPHILS % 11 %; LYMPHOCYTE # 1.5 K/uL (0.8-4.0); LYMPHOCYTE % 17 %; SEGMENTED NEUTROPHIL # 5.5 K/uL (1.8-7.8); SEGMENTED NEUTROPHIL % 62 %
--- NOTE | 2016-11-14 06:15 | NUR ---
Significant Event: Patient sedated, does not follow commands but has slight spon mvmnt noted to JOY et DESEAN. Withdraws x4. Does not open eyes to sound or spontaneously. Patient ventilated, A/C mode, 30% FiO2, sats >90%. LS slightly co/dim in bases. 2+ gen edema. 3 mod loose stools this shift held AM dulcolax. Young drains mod amounts of clear yellow. Follow up: monitor
--- NOTE | 2016-11-14 08:13 | NUR ---
A - NUTRITION F/U. ON VENT W/ PROPOFOL AT 15.7 ML/HR = 377 LIPID KCALS. GLU 133, BUN/CHECK EXAMINER 30/2.0, ALB 3.4. PO4 WNL. PT W/ 2-3+ BUE AND 2+ BLE EDEMA. DIALYSIS AND CHEMO YESTERDAY. GOOD UOP. NEEDS RECALCULATED FOR HD = 2150 KCALS, 74 GM PROTEIN, FLUIDS PER MD. OSMOLITE AT 45 ML/HR INFUSING W/O DIFFICULTY AND PROVIDING 1620 KCALS, 68 GM PROTEIN, 823 ML FREE H20. D - INADEQUATE ORAL INTAKE R/T NEED FOR VENTILATION AEB EN. I - GOAL: TO MEET NEEDS VIA EN. M/E - REC INCREASING TF TO 50 ML/HR = 1800 KCALS (2177 KCALS W/ PROPOFOL), 75 GM PROTEIN, 914 ML FREE H20. WILL F/U IN 2-4 DAYS.
--- NOTE | 2016-11-14 16:41 | NUR ---
Significant Event: Patient is sedated on 20mcg/kg/min of Propofol. Patient doesn't follow commands, moves extremities x4 spontaneously. Withdraws to pain in extremities x4. Pupils are equal and reactive. SBP have been 140's-170's, MAP's 80's-100's. Patient has been in SR with HR 70's-80's. Vent is running in AC rate of 12, TV of 500, PEEP of 5, FiO2 of 30%. RR have been upper teens-20's, EtCo2 have been upper 20's-low/mid 30's. Lung sounds are slightly coarse in uppers and diminished in the bases. Osmolite is running through OG at 45ml/hr which is goal. I didn't have any residuals. Patient had 2 small-large loose bowel movements. Follow up:
[2016-11-14 17:31] LABS: ALBUMIN 3.5 gm/dL (3.5-5.0); ANION GAP 9.3 (10.0-19.0); CALCIUM 10.1 mg/dL (8.5-10.5); CHLORIDE 104 mMol/L (96-110); CO2 27 mMol/L (22-32); POTASSIUM 3.3 mMol/L (3.7-5.1); SODIUM 137 mMol/L (135-145)
[2016-11-14 17:34] LABS: BLOOD UREA NITROGEN 11 mg/dL (6-24); CREATININE 0.9 mg/dL (0.5-1.1); ESTIMATED GFR (MDRD EQUATION) > 60; PHOSPHORUS 1.8 mg/dL (2.5-4.9)
--- NOTE | 2016-11-15 05:34 | NUR ---
PT. ON VENT 30% FIO2. ETCO2 30-35. BREATH SOUNDS SLIGHTLY COARSE T/O. SUCTIONED A SMALL AMOUNT OF THICK YELLOW SECRETIONS. WILL CONTINUE TO FOLLOW UNTIL FURTHER NOTICE.
[2016-11-15 05:46] LABS: HEMATOCRIT 24.1 % (33.0-46.0); MCH 29.5 pg (27.0-34.0); MCHC 32.8 gm/dL (32.0-36.5); MCV 89.9 fl (83.0-98.0); MPV 10.2 fl (9.4-12.4); PLATELET COUNT 82 K/uL (150-450); RBC 2.68 M/uL (3.50-5.50); RDW-CV 15.1 % (11.9-14.6)
[2016-11-15 05:49] LABS: HEMOGLOBIN 7.9 g/dL (10.0-15.0)
[2016-11-15 06:03] LABS: ALBUMIN 2.7 gm/dL (3.5-5.0); ANION GAP 12.8 (10.0-19.0); PHOSPHORUS 7.6 mg/dL (2.5-4.9); POTASSIUM 3.8 mMol/L (3.7-5.1); TOTAL PROTEIN 6.3 g/dL (6.0-8.4)
[2016-11-15 06:10] LABS: CALCIUM 13.2 mg/dL (8.5-10.5); CREATININE 1.8 mg/dL (0.5-1.1); TOTAL BILIRUBIN 0.7 mg/dL (0.0-1.5)
[2016-11-15 06:48] LABS: ABSOLUTE NEUTROPHIL CT (ANC) 4.2 K/uL (1.8-7.8); BANDED NEUTROPHIL # 0.6 K/uL (0.0-0.1); BANDED NEUTROPHILS % 8 %; LYMPHOCYTE # 2.1 K/uL (0.8-4.0); LYMPHOCYTE % 26 %; MONOCYTE # 0.4 K/uL (0.0-1.0); SEGMENTED NEUTROPHIL # 3.6 K/uL (1.8-7.8); SEGMENTED NEUTROPHIL % 45 %
--- NOTE | 2016-11-15 07:11 | NUR ---
Significant Event: Patient sedated on propofol at 20mcg/kg/min. Opens eyes to voice inconsistantly. No commands. Withdraws in extremeties x4, spontaneous x4. SR, BP stable. Afebrile. A/C on vent, overbreathes. Bowel sounds active, Tolerating TF well. BM x1 this shift. Young intact, good UOP. No new or worsening skin issues. NS continues at 150ml/hr. 30mmol kphos replaced this shift. Follow up: Continue.
--- NOTE | 2016-11-15 16:34 | NUR ---
Significant Event: Patient remains intubated on 10mcg/kg/min of propofol.Does not follow commands. Withdraws x4. Bilateral eyes deviate up and to the right and occasionally down and to the right. CT of head done today. sR with HR 70-90's. SBP 122-160. Lungs ascultated slightly coasrse-coarse. ETCO2 31-38. Active bowel sounds. Osmolite@45ml/h, nimimal residual. BM x2. Afebrile. Follow up:contine. Diaylsis tomorrow. EEG in am.
[2016-11-15 17:26] LABS: ALBUMIN 2.4 gm/dL (3.5-5.0); CREATININE 2.2 mg/dL (0.5-1.1); PHOSPHORUS 7.7 mg/dL (2.5-4.9)
[2016-11-15 17:33] LABS: ANION GAP 13.2 (10.0-19.0); POTASSIUM 4.2 mMol/L (3.7-5.1)
[2016-11-15 17:35] LABS: CALCIUM 13.7 mg/dL (8.5-10.5)
[2016-11-16 05:21] LABS: HEMATOCRIT 22.6 % (33.0-46.0); MCHC 31.9 gm/dL (32.0-36.5); MCV 91.1 fl (83.0-98.0); MPV 10.8 fl (9.4-12.4); PLATELET COUNT 75 K/uL (150-450); RBC 2.48 M/uL (3.50-5.50); RDW-CV 15.1 % (11.9-14.6); WBC 5.8 K/uL (4.0-11.0)
[2016-11-16 05:23] LABS: HEMOGLOBIN 7.2 g/dL (10.0-15.0)
[2016-11-16 05:36] LABS: ALBUMIN 2.1 gm/dL (3.5-5.0); ANION GAP 13.8 (10.0-19.0); CREATININE 2.6 mg/dL (0.5-1.1); MAGNESIUM 2.1 mg/dL (1.8-2.6); PHOSPHORUS 6.7 mg/dL (2.5-4.9); POTASSIUM 3.8 mMol/L (3.7-5.1)
--- NOTE | 2016-11-16 05:38 | NUR ---
Significant Event: Difficulty with patient synchronizing with vent tonight. Elevated PIPS in 30s and elevated RR's in 30's. Propofol gradually increased throughout the night. CUrrently Popofol is at 35mcg/kg/min. Pt continues to withdraw x4 extremities. Grimaces with cares. Bites down on ETT when suctioning is attempted. Sediment has developed in urinary catheter. Pt had x2 Moderate Bm's tonight. Follow up: COntinue
[2016-11-16 05:43] LABS: CALCIUM 12.7 mg/dL (8.5-10.5)
--- NOTE | 2016-11-16 05:48 | NUR ---
PT. ON VENT AT 30% WITH SATS 94-99%. ETCO2 26-30. BREATH SOUNDS ARE COARSE CRACKLES T/O. SUCTIONED A SMALL TO MODERATE AMOUNT OF THICK YELLOW SECRETIONS. WILL CONTINUE TO FOLLOW UNTIL FURTHER NOTICE.
[2016-11-16 05:58] LABS: ABSOLUTE NEUTROPHIL CT (ANC) 3.5 K/uL (1.8-7.8); BANDED NEUTROPHIL # 0.6 K/uL (0.0-0.1); BANDED NEUTROPHILS % 11 %; LYMPHOCYTE # 1.2 K/uL (0.8-4.0); LYMPHOCYTE % 20 %; MONOCYTE # 0.1 K/uL (0.0-1.0); SEGMENTED NEUTROPHIL # 2.8 K/uL (1.8-7.8); SEGMENTED NEUTROPHIL % 49 %
--- NOTE | 2016-11-16 10:34 | NUR ---
A-NUTRITION F/U ON THE VENT; PROPOFOL TURNED OFF. NO DIALYSIS PLANNED FOR TODAY. MRI AND EEG TODAY. 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 THIS IS PROVIDING 1620 KCALS, 68 GM PROTEIN, 823 ML FREE WATER. EST NUTR NEEDS (FOR HD): 1841 KCALS (30 KCALS/KG IBW) AND 74-79 GM PROTEIN (1.2-1.3 GM/KG IBW) D-AT NUTRITION RISK W/DIFF. SWALLOWING R/T VENT SUPPORT AEB NEED FOR ENTERAL NUTRITION. I-IF PT REMAINS ON HD, RECOMMEND INCREASING TF TO 50 ML/HR. THIS WILL PROVIDE 1800 KCALS, 75 GM PROTEIN, AND 914 ML FREE WATER. M/E-GOAL: TF TO MEET NUTRIENT NEEDS 1)F/U TF AND POC IN 2-3 DAYS 2)ASSIST NEEDED
--- NOTE | 2016-11-16 17:03 | NUR ---
No changes to vent settings t/o shift, increased FIo2 to 40% to maintain sats>90%. Lung sounds coarse t/o sxn small-moderate thin cream with spont cough from Pt. MRI transport with no complications. WIll continue to monitor
[2016-11-16 17:22] LABS: ANION GAP 14.1 (10.0-19.0); CALCIUM 11.8 mg/dL (8.5-10.5); CREATININE 2.9 mg/dL (0.5-1.1); PHOSPHORUS 6.4 mg/dL (2.5-4.9); POTASSIUM 4.1 mMol/L (3.7-5.1)
--- NOTE | 2016-11-16 17:47 | NUR ---
PROPOFOL TURNED OFF AT 1030. OPENS EYES SPONATNEOUSLY. GRIMACES WHEN REPOSITIONED, WHEN BEING SUCTIONED, AND PAINFUL STIMULI IS APPLIED. OVER BREATHS THE VENTILATOR. PUPILS HAVE BEEN 4 BRISK NO TRACKING. PATIENT HAS BEEN AFEBRILE ALL SHIFT. HIGHEST SBP OF 174. 2+ EDEMA TO THE ARMS AND LEGS BILATERALLY. NOW WEARING AND EDEMA GLOVE TO THE RIGHT HAND. LUNGS HAVE BEEN COARSE TO SLIGHTLY COARSE FROM THE TOP TO THE BASES. NO BM FOR THE SHIFT. DIALYSIS WAS NOT DONE TODAY DUE TO MD ORDER. UOP IS 940 FOR THE SHIFT. URINE IS YELLOW WITH WHITE CENTIMENT.
[2016-11-17 05:09] LABS: HEMATOCRIT 19.8 % (33.0-46.0); MCH 29.4 pg (27.0-34.0); MCHC 31.8 gm/dL (32.0-36.5); MCV 92.5 fl (83.0-98.0); MPV 11.3 fl (9.4-12.4); PLATELET COUNT 74 K/uL (150-450); RBC 2.14 M/uL (3.50-5.50); RDW-CV 15.2 % (11.9-14.6); WBC 3.9 K/uL (4.0-11.0)
[2016-11-17 05:12] LABS: HEMOGLOBIN 6.3 g/dL (10.0-15.0)
[2016-11-17 05:26] LABS: ANION GAP 12.9 (10.0-19.0); CALCIUM 10.9 mg/dL (8.5-10.5); MAGNESIUM 2.2 mg/dL (1.8-2.6); PHOSPHORUS 6.2 mg/dL (2.5-4.9); POTASSIUM 3.9 mMol/L (3.7-5.1)
[2016-11-17 05:32] LABS: ALBUMIN 1.8 gm/dL (3.5-5.0)
--- NOTE | 2016-11-17 05:39 | NUR ---
patient while of sedation will move both hands,lt>rt purposfully,will grimce to suction or repositioning,but will not open her eyes or follow simple commands,become tachycardic,tachypnic and bp>170,dr diaz was called and updated ,patient was restarted on iv propofol drip,clear upper lungs sound diminished on the bases,thick creamy secrtions when suctioned,a/c vent mode fio2=40%,z2hvl=71%,tolerate t.f at 45ml/h. FOLLOW UP:continue to monitor patient's hemodynamic and respiratory status closely,plan for L.P BY ANESTHESIA.
[2016-11-17 05:42] LABS: ABSOLUTE NEUTROPHIL CT (ANC) 2.8 K/uL (1.8-7.8); BANDED NEUTROPHIL # 0.3 K/uL (0.0-0.1); BANDED NEUTROPHILS % 8 %; LYMPHOCYTE # 0.5 K/uL (0.8-4.0); LYMPHOCYTE % 12 %; SEGMENTED NEUTROPHIL # 2.5 K/uL (1.8-7.8); SEGMENTED NEUTROPHIL % 63 %
[2016-11-17 09:33] LABS: INR - (THERAPEUTIC) 0.95 (0.92-1.07)
[2016-11-17 14:14] LABS: CERULOPLASMIN 19 mg/dL (7-220)
[2016-11-17 17:17] LABS: ANION GAP 16.1 (10.0-19.0); CALCIUM 10.6 mg/dL (8.5-10.5); CREATININE 3.1 mg/dL (0.5-1.1); PHOSPHORUS 5.6 mg/dL (2.5-4.9); POTASSIUM 4.1 mMol/L (3.7-5.1)
[2016-11-17 17:24] LABS: ALBUMIN 1.9 gm/dL (3.5-5.0)
--- NOTE | 2016-11-17 17:30 | NUR ---
Significant Event: Patient remains intubated with propofol at 30mcg/kg/min. Propofol currently off d/t only one IV line so able to give 1 unit PRBC's. With Propofol off has increased RR and SBP. Does not follow commands. With propfol off does move all extremities spontaneously with only slight movmements. Pupils midline but do not track. SR with HR 70's. SBP 115-150's. Slightly coarse-coarse throughout. ETCo2 20-27. Active bowel sounds. No BM this shift. Osmolite continues at 45ml/h, max residual 50. Afebrile. Accuchecks continue at AC/HS, non treated. Dose of Vitamin k given. SPO2>96%. No dialysis today. Follow up:Powerline to be placed in radiology tomorrow 11/18/16. NPO after midnoc.
[2016-11-18 05:39] LABS: MPV 10.9 fl (9.4-12.4); PLATELET COUNT 80 K/uL (150-450); RBC 2.29 M/uL (3.50-5.50); WBC 3.5 K/uL (4.0-11.0)
[2016-11-18 05:42] LABS: HEMOGLOBIN 6.6 g/dL (10.0-15.0); MCH 28.8 pg (27.0-34.0); MCV 87.3 fl (83.0-98.0); RDW-CV 17.3 % (11.9-14.6)
--- NOTE | 2016-11-18 05:47 | NUR ---
SIGNIFICANT EVENT: pt unresponsive, w/d all extremeties, grimaces to pain, will bite suction and oral cares. Propofol turned down to 20mcg/kg/min due to low BP (80s/40s). NPO at midnight for powerline placement today. Follow up: powerline placement
[2016-11-18 05:55] LABS: INR - (THERAPEUTIC) 0.92 (0.92-1.07); PROTIME 9.7 SECONDS (9.8-11.4)
[2016-11-18 05:58] LABS: ANION GAP 14.2 (10.0-19.0); CALCIUM 10.2 mg/dL (8.5-10.5); CREATININE 3.3 mg/dL (0.5-1.1); MAGNESIUM 2.2 mg/dL (1.8-2.6); PHOSPHORUS 5.2 mg/dL (2.5-4.9); POTASSIUM 4.2 mMol/L (3.7-5.1)
[2016-11-18 06:10] LABS: ALBUMIN 1.7 gm/dL (3.5-5.0)
[2016-11-18 06:14] LABS: ABSOLUTE NEUTROPHIL CT (ANC) 2.4 K/uL (1.8-7.8); BANDED NEUTROPHIL # 0.2 K/uL (0.0-0.1); BANDED NEUTROPHILS % 6 %; LYMPHOCYTE # 0.4 K/uL (0.8-4.0); LYMPHOCYTE % 12 %; SEGMENTED NEUTROPHIL # 2.1 K/uL (1.8-7.8); SEGMENTED NEUTROPHIL % 61 %
--- NOTE | 2016-11-18 10:38 | NUR ---
A - NUTRITION F/U. ON VENT, PROPOFOL OFF. GLU 86, BUN/CRUISE STAFF MEMBER 65/3.3, ALB 1.7, PO4 5.2. PT W/ 1+ EDEMA T/O. NO DIALYSIS TODAY. NPO FOR POWERLINE PLACEMENT. OSMOLITE 1.5 HAS BEEN INFUSING AT 45 ML/HR W/O DIFFICULTY. D - AT RISK W/ INADEQUATE ORAL INTAKE R/T RELIANCE ON VENT AEB EN. I - GOAL: MEET 100% OF NEES VIA EN. M/E - REC INCREASING TF TO 50 ML/HR WHEN IT IS RESUMED TO BETTER MEET PT NEEDS. F/U IN 2-3 DAYS.
--- NOTE | 2016-11-18 14:30 | NUR ---
Talked to patient's nurse this a.m. and daughter is coming this afternoon to meet with doctors. Talked with Helen JACOBSON palliative care this afternoon. She says daughter was here and met with the Anatoly and Helen and was going home to think about what decisions. Helen says she thinks daughter is leaning towards trach and peg if needed. Helen did talk to her about patient having to go to [facility] for next level of care. Will follow.
[2016-11-18 16:40] LABS: HEMATOCRIT 24.2 % (33.0-46.0); HEMOGLOBIN 7.9 g/dL (10.0-15.0)
[2016-11-18 16:49] LABS: ANION GAP 17.4 (10.0-19.0); CALCIUM 9.9 mg/dL (8.5-10.5); CREATININE 3.4 mg/dL (0.5-1.1); PHOSPHORUS 5.6 mg/dL (2.5-4.9); POTASSIUM 4.4 mMol/L (3.7-5.1)
[2016-11-18 16:51] LABS: ALBUMIN 1.9 gm/dL (3.5-5.0)
--- NOTE | 2016-11-18 17:04 | NUR ---
Significant Event: Patient remains intubated. Propofol turned off at 0640. 1 unit PRBCs infused in am. Vital signs stable with propofol off. RR 20s-30s, SR with HR 70s, SBP 120-170s. Does not follow commands. Slight spontaneous movement in the lower bilateral extremities and left upper extremity. Withdraws to painful stimuli in all four extremities. Pupils deviated down and to the right bilaterally and do not track. Lung sounds coarse throughout and diminished in the bilateral bases. No BM this shift. Bowel sounds active x4. Osmolite restarted at 45 ml/hr. No dialysis today. Dual lumen subclavian powerline placed in IR. Palliative, Dr. Plaza, and Dr. Zazueta met with daughter and son-in-law to discuss prognosis and plan of care. 24 hr urine collection started at 1500. Follow up: Waiting for family to make decision regarding plan of care.
--- NOTE | 2016-11-19 05:07 | NUR ---
No changes were made to vent settings this shift. FiO2 currently at 40% for O2 sats of 94-97%. ETCO2 was 23-26 throughout the shift. Breathsounds coarse to slightly coarse throughout bilaterally. Suctioning small amounts of thick clear secertions. Will continue to monitor patient.
[2016-11-19 05:50] LABS: ALBUMIN 1.7 gm/dL (3.5-5.0); ANION GAP 14.9 (10.0-19.0); CALCIUM 9.8 mg/dL (8.5-10.5); CREATININE 3.5 mg/dL (0.5-1.1); MAGNESIUM 2.3 mg/dL (1.8-2.6); PHOSPHORUS 4.5 mg/dL (2.5-4.9); POTASSIUM 3.9 mMol/L (3.7-5.1)
[2016-11-19 05:52] LABS: HEMATOCRIT 21.6 % (33.0-46.0); MCH 29.3 pg (27.0-34.0); MCHC 33.3 gm/dL (32.0-36.5); MCV 87.8 fl (83.0-98.0); MPV 11.3 fl (9.4-12.4); PLATELET COUNT 95 K/uL (150-450); RBC 2.46 M/uL (3.50-5.50); RDW-CV 16.9 % (11.9-14.6); WBC 3.2 K/uL (4.0-11.0)
[2016-11-19 05:53] LABS: HEMOGLOBIN 7.2 g/dL (10.0-15.0)
[2016-11-19 06:12] LABS: ABSOLUTE NEUTROPHIL CT (ANC) 2.2 K/uL (1.8-7.8); BANDED NEUTROPHIL # 0.1 K/uL (0.0-0.1); BANDED NEUTROPHILS % 4 %; LYMPHOCYTE # 0.6 K/uL (0.8-4.0); LYMPHOCYTE % 20 %; SEGMENTED NEUTROPHIL # 2.1 K/uL (1.8-7.8); SEGMENTED NEUTROPHIL % 64 %
--- NOTE | 2016-11-19 06:51 | NUR ---
Significant Event: Does not open eyes when responding to painful stimuli. Pupils are 3mm brisk, eyes deviate right and downwards. Corneal reflex present, gag intact. Inward flexion to upper extremities to painful stimuli. Withdraws in lower extremities. 2+ generalized edema, 2+ pulses. SBP 130-160's, HR 70-90's. Lung sounds, slightly coarse at times, breathes above vent rate, spontaneous cough present. A/C vent mode, Rate 12, TV 500, PEEP 5. Bowel sounds hypoactive, on Tube Feeding via OG at 45mL/hr no residuals. Young intact draining cloudy sediment urine, 24 hour urine collection ends at 1500 this evening. R) subclavian dialysis double lumen catheter SL'd. L) subclavian double lumen infusing Propofol at 20mcg/kg/min with NaCl and Bicarb at 75mL/hr. Turn Q2Hr's, oral cares. Follow up: Patient's daughter is planning to visit on Wednesday at 1500, neuro checks Q4hrs, Urine collection ends at 1500 this evening. Accuchecks AC/HS.
[2016-11-19 11:27] LABS: BICARBONATE 22.8 mmol/L (18.0-23.0); PCO2 32 mmHg (35-45); PO2 127 mmHg (80-90)
--- NOTE | 2016-11-19 13:14 | NUR ---
Significant Event:PT DOES NOT FOLLOW COMMANDS. DOES NOT OPEN EYES. PUPIL ARE 3 AND BRISK BUT DIVATE TO THE RIGHT. OCCASIONAL HEAD JERKING FROM SIDE TO SIDE NOTED. WITHDRAW FROM PAIN. GENERALIZED EDEMA NOTED. ON VENT. FIO2 40% TV 500 RATE 12. LUNG SOUNDS CLEAR AND DIMINISHED. CLEAR SMALL AMOUNT OF SPUTUM NOTED. OG RUNNING TF. RIVERA DRAINING CLOUDY URINE. DIAYLSIS LINE R) SUBCLAVIN. L) SUBCLAVIN POWERPORT. IVF RUNNING. PROPOFOL RUNNING. ACCU CHECKS ACHS. NORS NOTIFIED TODAY. ON BEDREST REPOSITIONED OFTEN. Follow up:
--- NOTE | 2016-11-19 16:32 | NUR ---
Left VMM this a.m. for Abby at [facility]. Talked to Helen JACOBSON palliative Care early afternoon and she says she just talked to her daughter and she will be here tomorrow afternoon but is strongly considering comfort cares. Talked to Abby and told her at this time will hold on referral until family makes decision regarding comfort cares. Will follow.
[2016-11-19 17:34] LABS: CALCIUM 9.2 mg/dL (8.5-10.5); CREATININE 3.5 mg/dL (0.5-1.1); PHOSPHORUS 4.1 mg/dL (2.5-4.9)
[2016-11-19 17:37] LABS: ALBUMIN 1.7 gm/dL (3.5-5.0)
[2016-11-20 04:56] LABS: ANION GAP 13.9 (10.0-19.0); CREATININE 3.6 mg/dL (0.5-1.1); MAGNESIUM 2.4 mg/dL (1.8-2.6); PHOSPHORUS 3.9 mg/dL (2.5-4.9); POTASSIUM 3.9 mMol/L (3.7-5.1)
[2016-11-20 04:57] LABS: ALBUMIN 1.6 gm/dL (3.5-5.0); HEMATOCRIT 21.4 % (33.0-46.0); MCH 29.2 pg (27.0-34.0); MCHC 32.7 gm/dL (32.0-36.5); MCV 89.2 fl (83.0-98.0); MPV 10.5 fl (9.4-12.4); PLATELET COUNT 114 K/uL (150-450); RDW-CV 16.8 % (11.9-14.6); WBC 2.3 K/uL (4.0-11.0)
[2016-11-20 05:23] LABS: ABSOLUTE NEUTROPHIL CT (ANC) 1.5 K/uL (1.8-7.8); BANDED NEUTROPHIL # 0.1 K/uL (0.0-0.1); BANDED NEUTROPHILS % 4 %; LYMPHOCYTE # 0.5 K/uL (0.8-4.0); LYMPHOCYTE % 20 %; SEGMENTED NEUTROPHIL # 1.5 K/uL (1.8-7.8); SEGMENTED NEUTROPHIL % 63 %
--- NOTE | 2016-11-20 05:24 | NUR ---
Significant Event: Does not open eyes when responding to painful stimuli. Pupils are 3mm brisk, deviate downwards and to the left, corneal reflex present. Gag reflex present, spontaneous cough noted. Inward flexion to upper extremities when responding to painful stimuli, spontaneous movement present. Lower extremities flexion withdrawal to painful stimuli, spontaneous movement present. Unable to follow commands. SBP 110-150's. HR 70-90's, 2+ generalized edema, edema glove to R) hand. L.S. slightly coarse throughout on 40%FiO2, A/C vent mode, rate 12, TV 500, PEEP 5. B.S. hypoactive, last BM 11/19, 2 small smears this shift. OG feeeding at 45mL/hr no free water flushes, greatest residual 5mL. Young catheter intact draining jimmy sediment urine 100-200Qhr output. L) subclavian double lumen infusing Propofol at 15mcg/kg, NaCl with Sodium Bicarb infusing at 75mL/hr. R) subclavian dialysis cath SL'd. Turn Q2Hr. Accuchecks AC/HS no coverage needed. Follow up: Daughter (POA) to see patient at 1500 today.
--- NOTE | 2016-11-20 10:52 | NUR ---
A-NUTRITION F/U DIALYSIS AND CHEMO ON HOLD. FAMILY MEETING LATER TODAY TO DECIDE POC; CONSIDERING COMFORT MEASURES. (+)BM; HYPOACTIVE BS; MINIMAL RESIDUALS FROM TF. LABS: NA 143, K+ 3.9, GLU 3.9, 117, BUN 67, PREPAROLE COUNSELING AIDE 3.6. ALB 2.6 DIET RX: NPO; 45 ML/HR OSMOLITE 1.5 D-AT NUTRITION RISK W/INADEQUATE ORAL INTAKE R/T VENT SUPPORT AEB NEED FOR EN. I-RECOMMEND INCREASING TF TO 50 ML/HR OSMOLITE 1.5 TO MEET NUTRIENT NEEDS M/E-GOAL: TF TO MEET 100% OF PT'S NUTR. NEEDS 1)F/U TF AND POC IN 3-4 DAYS 2)ASSIST NEEDED
--- NOTE | 2016-11-20 16:30 | NUR ---
Significant Events: Family decided to proceed with comfort cares this afternoon. Extubated at 1543, 2L N/C applied. Patient's SaO2 currently 70-80%. PRN Morphine given for comfort. Family at bedside
--- NOTE | 2016-11-20 17:13 | NUR ---
PT WAS WITHDRAWN ON DUE TO FAMILY WISHES @ 1686 AND PLACED ON 2L NC
--- NOTE | 2016-11-20 17:39 | NUR ---
Backlog for 11/16: I am the RN precepting SN Coutr, and I agree with her charting for this day.
--- NOTE | 2016-11-20 20:45 | NUR ---
FAMILY AT BESIDE, ASSESSMENT COMPLETED OF PATIENT. VITALS TAKEN. MORPHINE GIVEN PER FAMILY REQUEST FOR GASPING RESPIRATIONS. O2 PER NASAL CANNULA DISCONTINUED. TIME OF CONFIRMED AT 191 BY 2 RN'S (KAITLYN Marion, RN AND SHANIQUE Mercado RN) NOTIFIED PRIMARY PHYSICIAN DR FAY ABOUT TIME OF CONTACTED DIANA REYES APRN ABOUT TIME OF . CONTACTED [facility] [place] OF PATIENT EXPIRATION PER FAMILYS REQUEST. ALL BELONGINGS SENT WITH FAMILY. NORS NOTIFED OF TIME OF . RULED OUT.
== END 2016-11-20 19:17 | disposition expired | DRG 840 ==
LOC: GPCU 12:30 → GICU 12:36 → GPCU 12:36 → GICU 11-07 10:26
PROVIDERS: Internal Medicine; Internal Medicine Critical Care Medicine; Internal Medicine Hematology & Oncology; Internal Medicine Nephrology; Nurse Practitioner; Radiology Diagnostic Radiology; ADMIT Internal Medicine
DX: C90.10 Plasma cell leukemia not having achieved remission (principal); N17.0 Acute kidney failure with tubular necrosis; J96.01 Acute respiratory failure with hypoxia; G93.6 Cerebral edema; J69.0 Pneumonitis due to inhalation of food and vomit; J15.211 Pneumonia due to Methicillin susceptible Staphylococcus aureus; D61.818 Other pancytopenia; B59 Pneumocystosis; I67.4 Hypertensive encephalopathy; J98.11 Atelectasis; Z68.41 Body mass index [BMI] 40.0-44.9, adult; E87.2 Acidosis; C90.00 Multiple myeloma not having achieved remission; Z51.5 Encounter for palliative care; I12.9 Hypertensive chronic kidney disease with stage 1 through stage 4 chronic kidney disease, or unspecified chronic kidney disease; E11.22 Type 2 diabetes mellitus with diabetic chronic kidney disease; N18.3 Chronic kidney disease, stage 3 (moderate); E11.42 Type 2 diabetes mellitus with diabetic polyneuropathy; E66.01 Morbid (severe) obesity due to excess calories; E86.0 Dehydration; I16.0 Hypertensive urgency; Z79.84 Long term (current) use of oral hypoglycemic drugs; E83.52 Hypercalcemia; R56.9 Unspecified convulsions; W18.30XA Fall on same level, unspecified, initial encounter; Z66 Do not resuscitate; R40.2434 Glasgow coma scale score 3-8, 24 hours or more after hospital admission; M15.9 Polyosteoarthritis, unspecified; Z87.891 Personal history of nicotine dependence; M54.30 Sciatica, unspecified side; K76.0 Fatty (change of) liver, not elsewhere classified; G25.0 Essential tremor; E78.5 Hyperlipidemia, unspecified; Z78.1 Physical restraint status; E87.6 Hypokalemia; D69.6 Thrombocytopenia, unspecified; I49.9 Cardiac arrhythmia, unspecified; D89.2 Hypergammaglobulinemia, unspecified; E83.39 Other disorders of phosphorus metabolism; D63.0 Anemia in neoplastic disease; Y95 Nosocomial condition; D63.1 Anemia in chronic kidney disease
CPT/HCPCS: A9270; A9539; A9540; C1750; C1751; C9113; J0360; J0610; J0630; J0692; J1100; J1644; J1940; J2020; J2250; J2270; J2310; J2430; J2543; J2704; J3010; J3475; J7030; J7040; J7050; J7060; J8530; J9041; P9016; P9045; Q4081